=== PATIENT | male | born 1960 | race Two or more races ===

== ENCOUNTER 2024-05-20 20:59 | Inpatient (IN) | payer OTHER ==
[~2024-05-20] VITALS: Ht 167.6 cm; Wt 58.5 kg
[2024-05-20] MEDS: IV NS 0.9% 1,000 ML BAG IV ONE (21:20)
[2024-05-20 21:27] LABS: ABG BASE EXCESS -2.2 mmol/L (-2.0-3.0); ABG OXYGEN SATURATION 97.2 % (94.0-98.0); ABG PCO2 29.9 mmHg (35.0-48.0); ABG PH 7.463 (7.350-7.450); ABG PO2 99.3 mmHg (83.0-108.0); ABG TOTAL HEMOGLOBIN 9.6 G/dL (13.5-17.5); COHb 0.3 % (0.5-1.5); O2Hb 96.9 % (94.0-97.0); SITE, ABG RIGHT RADIAL
[2024-05-20 21:31] LABS: BASOPHILS # (AUTO) 0.1 K/uL (0.0-0.2); BASOPHILS % (AUTO) 0.7 % (0.0-2.0); EOSINOPHILS # (AUTO) 0.1 K/uL (0.0-0.7); EOSINOPHILS % (AUTO) 0.8 % (0.0-6.0); HEMATOCRIT 28 % (39-51); HEMOGLOBIN 8.8 g/dL (13.5-17.5); LYMPHOCYTES # (AUTO) 1.3 K/uL (0.8-4.8); LYMPHOCYTES % (AUTO) 10.8 % (20.0-44.0); MEAN CORPUSCULAR HEMOGLOBIN 29 PG (26.0-33.0); MEAN CORPUSCULAR HGB CONC 32 g/dl (31.0-36.0); MEAN CORPUSCULAR VOLUME 91 fL (80-96); MONOCYTES # (AUTO) 0.9 K/uL (0.1-1.30); MONOCYTES % (AUTO) 7.5 % (2.0-12.0); NEUTROPHILS # (AUTO) 9.6 K/uL (1.8-8.9); NEUTROPHILS % (AUTO) 80.2 % (43.0-81.0); PLATELET COUNT (AUTO) 251 K/uL (150-450); RED BLOOD CELL COUNT(AUTO) 3.05 MIL/uL (4.5-6.0); RED CELL DISTRIBUTION WIDTH 20.4 % (11.5-15.0)
[2024-05-20 21:43] LABS: INR 1.18 (0.91-1.10); PARTIAL THROMBOPLASTIN TIME 32.5 SEC (24.3-34.3); PROTHROMBIN TIME 12.4 SECS (9.2-11.1)
[2024-05-20 21:45] LABS: SODIUM SERUM 148 mmol/L (136-145)
[2024-05-20 21:46] LABS: CALCIUM, SERUM 8.5 mg/dL (8.5-10.1); CARBON DIOXIDE 25 mmol/L (21-32); CHLORIDE 109 mmol/L (98-107); CREATININE 3.7 mg/dL (0.6-1.3); GLUCOSE 95 mg/dL (74-106); POTASSIUM 4.3 mmol/L (3.5-5.1); UREA NITROGEN, BLOOD 58 mg/dL (7-18)
[2024-05-20 21:52] LABS: LACTIC ACID 1.3 mmol/L (0.4-2.0)
[2024-05-20 21:58] LABS: ALANINE AMINOTRANSFERASE 19 U/L (12-78); ALBUMIN 1.8 g/dL (3.4-5.0); ALKALINE PHOSPHATASE 80 U/L (46-116); ASPARTATE AMINOTRANSFERASE 25 U/L (15-37); BILIRUBIN,DIRECT 0.2 mg/dL (0.0-0.2); BILIRUBIN,TOTAL 0.4 mg/dL (0.2-1.0); TOTAL PROTEIN, SERUM 6.2 g/dL (6.4-8.2)
[2024-05-20 22:10] LABS: APPEARANCE,URINE CLOUDY (CLEAR); BILIRUBIN,URINE NEGATIVE (NEGATIVE); BLOOD, URINE 1+ Ery/uL (NEGATIVE); COLOR,URINE YELLOW (YELLOW); KETONES,URINE NEGATIVE (NEGATIVE); LEUKOCYTE ESTERASE ,URINE 2+ (NEGATIVE); NITRITE, URINE NEGATIVE (NEGATIVE); PROTEIN,URINE 3+ mg/dl (NEGATIVE); UGLUCOSE NEGATIVE (NEGATIVE); UROBILINOGEN,URINE 0.2 EU/dL (0.2)
[2024-05-20 22:17] LABS: BACTERIA,URINE Many /HPF (None Seen); SQUAMOUS EPITHELIAL CELL,UR None Seen /HPF (None Seen); YEAST,URINE Many /HPF (None Seen)
[2024-05-20 22:18] LABS: ADD URINE CULTURE YES; WBC,URINE TOO NUMEROUS TO COUN /HPF (0-3)
[2024-05-20] MEDS ORDERED: CEFEPIME 1 GM VIAL ONE (22:18)
[2024-05-20] MEDS ORDERED: ACETAMINOPHEN 650 MG/SUPP.RECT RC ONE (22:18)
[2024-05-20] MEDS: ACETAMINOPHEN 650 MG/SUPP.RECT RC ONE (22:21)
[2024-05-20] MEDS: CEFEPIME 1 GM in IV D5W 50 ML IV ONE (22:30)
[2024-05-20] MEDS ORDERED: VANCOMYCIN 1 GM /D5W 250 ML PB IV ONE (22:59)
[2024-05-20] MEDS: VANCOMYCIN 1 GM in IV D5W 250 ML IV ONE ×2 (23:00→23:26)
[2024-05-20] MEDS ORDERED: ALBUTEROL FS 2.5 MG/3 ML VIAL.NEB NEB PRN (23:00)
[2024-05-20] MEDS ORDERED: ONDANSETRON HCL/PF 4 MG/2 ML VIAL IVP PRN (23:00)
[2024-05-20] MEDS ORDERED: IV NS 0.9% 1,000 ML IV PRN (23:00)
[2024-05-20 23:15] VITALS: BP 89/78; O2SAT 95
[2024-05-20] MEDS: ENOXAPARIN SODIUM 40 MG/0.4 ML DISP.SYRIN SQ SCH (23:29)
[2024-05-20 23:30] VITALS: BP 102/91; O2SAT 94
[2024-05-20 23:45] VITALS: BP 96/75; O2SAT 99
[2024-05-21] VITALS (39 sets, daily range): BP systolic 125–185; BP diastolic 34–119; TEMP 97.5–98.8; O2SAT 89–100
[2024-05-21 04:57] LABS: BASOPHILS # (AUTO) 0.1 K/uL (0.0-0.2); BASOPHILS % (AUTO) 0.6 % (0.0-2.0); EOSINOPHILS # (AUTO) 0.1 K/uL (0.0-0.7); EOSINOPHILS % (AUTO) 0.9 % (0.0-6.0); HEMATOCRIT 28 % (39-51); HEMOGLOBIN 8.9 g/dL (13.5-17.5); LYMPHOCYTES # (AUTO) 1.5 K/uL (0.8-4.8); LYMPHOCYTES % (AUTO) 14.8 % (20.0-44.0); MEAN CORPUSCULAR HEMOGLOBIN 29 PG (26.0-33.0); MEAN CORPUSCULAR HGB CONC 31 g/dl (31.0-36.0); MEAN CORPUSCULAR VOLUME 92 fL (80-96); MONOCYTES # (AUTO) 0.9 K/uL (0.1-1.30); MONOCYTES % (AUTO) 8.5 % (2.0-12.0); NEUTROPHILS # (AUTO) 7.8 K/uL (1.8-8.9); NEUTROPHILS % (AUTO) 75.2 % (43.0-81.0); PLATELET COUNT (AUTO) 245 K/uL (150-450); RED CELL DISTRIBUTION WIDTH 20.8 % (11.5-15.0); WHITE BLOOD COUNT (AUTO) 10.3 K/uL (4.3-11.0)
[2024-05-21 05:27] LABS: ALBUMIN 1.5 g/dL (3.4-5.0); BILIRUBIN,DIRECT 0.2 mg/dL (0.0-0.2); BILIRUBIN,TOTAL 0.3 mg/dL (0.2-1.0); CALCIUM, SERUM 8.2 mg/dL (8.5-10.1); CREATININE 3.5 mg/dL (0.6-1.3); MAGNESIUM 2.2 mg/dL (1.8-2.4); PHOSPHORUS 5.3 mg/dL (2.5-4.9); POTASSIUM 3.9 mmol/L (3.5-5.1); TOTAL PROTEIN, SERUM 5.9 g/dL (6.4-8.2)
[2024-05-21 05:34] LABS: THYROID STIMULATING HORMONE 3.22 uIU/mL (0.358-3.74)
[2024-05-21] MEDS: FUROSEMIDE 20 MG/2 ML VIAL IV SCH (06:35)
[2024-05-21] MEDS: PANTOPRAZOLE 40 MG VIAL IV SCH (08:09)
[2024-05-21] MEDS: VANCOMYCIN 750 MG in IV D5W 250 ML IV ONE (08:34)
[2024-05-21] MEDS: Z GUARD REMEDY 4 OZ OINT TP PRN (08:55)
[2024-05-21] MEDS: CEFEPIME 2 GM in IV D5W 100 ML IV SCH (10:21)
[2024-05-21] MEDS ORDERED: ASPI-1169 PO (11:27)
[2024-05-21] MEDS ORDERED: TAMS-12 PO (11:27)
[2024-05-21] MEDS ORDERED: PANT40TA49 PO (11:27)
[2024-05-21] MEDS ORDERED: POTA20PA3 PO (11:27)
[2024-05-21] MEDS ORDERED: LIDO30AD10 TP (11:27)
[2024-05-21] MEDS ORDERED: GABA300C PO (11:27)
[2024-05-21] MEDS ORDERED: ATOR40TA PO (11:27)
[2024-05-21] MEDS ORDERED: TOBR5DRO36 RIGHTEYE (11:27)
[2024-05-21] MEDS ORDERED: DEXAMETHASONE RIGHTEYE (11:27)
[2024-05-21] MEDS ORDERED: FURO20TA4 PO (11:27)
[2024-05-21] MEDS ORDERED: COLC0.6T67 PO (11:27)
[2024-05-21 15:31] LABS: CREATININE, URINE 30.9 MG/DL (30.0-125.0); URINE TOTAL PROTEIN 352.7 mg/dL (0-11.9)
[2024-05-21 15:52] LABS: APPEARANCE,URINE CLOUDY (CLEAR); BILIRUBIN,URINE NEGATIVE (NEGATIVE); BLOOD, URINE 2+ Ery/uL (NEGATIVE); COLOR,URINE RED (YELLOW); KETONES,URINE NEGATIVE (NEGATIVE); LEUKOCYTE ESTERASE ,URINE 2+ (NEGATIVE); NITRITE, URINE NEGATIVE (NEGATIVE); PROTEIN,URINE 3+ mg/dl (NEGATIVE); UGLUCOSE NEGATIVE (NEGATIVE); UROBILINOGEN,URINE 0.2 EU/dL (0.2)
[2024-05-21 16:10] LABS: ADD URINE CULTURE YES; BACTERIA,URINE Moderate /HPF (None Seen); RBC,URINE TOO NUMEROUS TO COUN /HPF (0-2); SQUAMOUS EPITHELIAL CELL,UR None Seen /HPF (None Seen); WBC,URINE TOO NUMEROUS TO COUN /HPF (0-3)
[2024-05-21 16:28] LABS: EOSINOPHIL,URINE None Seen
[2024-05-21] MEDS: ACETAMINOPHEN 650 MG/SUPP.RECT RC PRN (22:17)
[2024-05-22] VITALS (42 sets, daily range): BP systolic 117–160; BP diastolic 59–98; TEMP 97.5–107; O2SAT 86–100
[2024-05-22 05:05] LABS: ALBUMIN 1.5 g/dL (3.4-5.0); BASOPHILS # (AUTO) 0.1 K/uL (0.0-0.2); BASOPHILS % (AUTO) 0.5 % (0.0-2.0); BILIRUBIN,TOTAL 0.4 mg/dL (0.2-1.0); CALCIUM, SERUM 8.5 mg/dL (8.5-10.1); CREATININE 3.7 mg/dL (0.6-1.3); EOSINOPHILS % (AUTO) 0.3 % (0.0-6.0); HEMATOCRIT 21 % (39-51); LYMPHOCYTES # (AUTO) 1.4 K/uL (0.8-4.8); LYMPHOCYTES % (AUTO) 11.2 % (20.0-44.0); MAGNESIUM 2.3 mg/dL (1.8-2.4); MEAN CORPUSCULAR HEMOGLOBIN 29 PG (26.0-33.0); MEAN CORPUSCULAR HGB CONC 32 g/dl (31.0-36.0); MEAN CORPUSCULAR VOLUME 92 fL (80-96); MONOCYTES # (AUTO) 0.8 K/uL (0.1-1.30); MONOCYTES % (AUTO) 6.7 % (2.0-12.0); NEUTROPHILS # (AUTO) 10.3 K/uL (1.8-8.9); NEUTROPHILS % (AUTO) 81.3 % (43.0-81.0); PHOSPHORUS 5.8 mg/dL (2.5-4.9); PLATELET COUNT (AUTO) 213 K/uL (150-450); POTASSIUM 3.9 mmol/L (3.5-5.1); RED CELL DISTRIBUTION WIDTH 20.2 % (11.5-15.0); TOTAL PROTEIN, SERUM 5.6 g/dL (6.4-8.2); WHITE BLOOD COUNT (AUTO) 12.6 K/uL (4.3-11.0)
[2024-05-22 05:30] LABS: HEMOGLOBIN 6.7 g/dL (13.5-17.5)
[2024-05-22 06:08] LABS: ANISOCYTOSIS 1+; HYPOCHROMASIA 2+; LYMPHOCYTES % (MANUAL) 9 % (16-48); MONOCYTES % (MANUAL) 6 % (0-11.0); NEUTROPHILS % (MANUAL) 85 (42-76); PLATELET ESTIMATE ADEQUATE
[2024-05-22] MEDS ORDERED: AMIODARONE 450 MG in IV D5W 241 ML IV PRN (07:00)
[2024-05-22] MEDS ORDERED: AMIODARONE 150 MG in IV D5W 100 ML IV ONE (07:00)
[2024-05-22] MEDS: VANCOMYCIN 1 GM in IV D5W 250 ML IV SCH (09:00)
[2024-05-22] MEDS: IV D5/ 0.9% NACL 1,000 ML IV ONE (11:02)
[2024-05-22] MEDS: METOPROLOL TARTRATE 25 MG TABLET PO SCH (17:30)
[2024-05-22 19:03] LABS: HEMOGLOBIN 5.5 g/dL (13.5-17.5)
[2024-05-22] MEDS: DOCUSATE SODIUM 100 MG CAPSULE PO SCH (21:00)
[2024-05-22] MEDS: POLYETHYLENE GLYCOL 3350 17 GM POWD.PACK PO SCH (21:53)
[2024-05-23] VITALS (11 sets, daily range): BP systolic 111–138; BP diastolic 68–88; TEMP 97.9–99.6; O2SAT 92–100
[2024-05-23 06:48] LABS: BASOPHILS # (AUTO) 0.1 K/uL (0.0-0.2); BASOPHILS % (AUTO) 0.6 % (0.0-2.0); HEMATOCRIT 22 % (39-51); HEMOGLOBIN 7.2 g/dL (13.5-17.5); LYMPHOCYTES # (AUTO) 1.7 K/uL (0.8-4.8); LYMPHOCYTES % (AUTO) 11.2 % (20.0-44.0); MEAN CORPUSCULAR HEMOGLOBIN 29 PG (26.0-33.0); MEAN CORPUSCULAR HGB CONC 33 g/dl (31.0-36.0); MEAN CORPUSCULAR VOLUME 90 fL (80-96); MONOCYTES # (AUTO) 1.2 K/uL (0.1-1.30); MONOCYTES % (AUTO) 7.8 % (2.0-12.0); NEUTROPHILS # (AUTO) 12.4 K/uL (1.8-8.9); NEUTROPHILS % (AUTO) 80.4 % (43.0-81.0); PLATELET COUNT (AUTO) 221 K/uL (150-450); RED BLOOD CELL COUNT(AUTO) 2.44 MIL/uL (4.5-6.0); RED CELL DISTRIBUTION WIDTH 18.4 % (11.5-15.0); WHITE BLOOD COUNT (AUTO) 15.4 K/uL (4.3-11.0)
[2024-05-23 07:09] LABS: PTH, INTACT 22 pg/mL (15-65)
[2024-05-23 07:16] LABS: CREATININE 3.7 mg/dL (0.6-1.3); MAGNESIUM 2.2 mg/dL (1.8-2.4); PHOSPHORUS 4.8 mg/dL (2.5-4.9); POTASSIUM 3.6 mmol/L (3.5-5.1)
[2024-05-23 07:30] LABS: CALCIUM, SERUM 8.3 mg/dL (8.5-10.1)
[2024-05-23 18:42] LABS: HEMOGLOBIN 7.4 g/dL (13.5-17.5)
[2024-05-24] VITALS: BP 123/86; TEMP 98.5; O2SAT 100
[2024-05-24 04:00] VITALS: BP 126/80; TEMP 98.7; O2SAT 95
[2024-05-24 06:48] LABS: BASOPHILS # (AUTO) 0.1 K/uL (0.0-0.2); BASOPHILS % (AUTO) 0.4 % (0.0-2.0); EOSINOPHILS # (AUTO) 0.1 K/uL (0.0-0.7); EOSINOPHILS % (AUTO) 0.4 % (0.0-6.0); HEMATOCRIT 24 % (39-51); HEMOGLOBIN 7.5 g/dL (13.5-17.5); LYMPHOCYTES # (AUTO) 1.8 K/uL (0.8-4.8); LYMPHOCYTES % (AUTO) 10.9 % (20.0-44.0); MEAN CORPUSCULAR HEMOGLOBIN 29 PG (26.0-33.0); MEAN CORPUSCULAR HGB CONC 31 g/dl (31.0-36.0); MEAN CORPUSCULAR VOLUME 94 fL (80-96); MONOCYTES # (AUTO) 1.3 K/uL (0.1-1.30); MONOCYTES % (AUTO) 7.5 % (2.0-12.0); NEUTROPHILS # (AUTO) 13.7 K/uL (1.8-8.9); NEUTROPHILS % (AUTO) 80.8 % (43.0-81.0); PLATELET COUNT (AUTO) 249 K/uL (150-450); RED BLOOD CELL COUNT(AUTO) 2.55 MIL/uL (4.5-6.0); RED CELL DISTRIBUTION WIDTH 19.6 % (11.5-15.0); WHITE BLOOD COUNT (AUTO) 16.9 K/uL (4.3-11.0)
[2024-05-24 07:57] LABS: CALCIUM, SERUM 9.2 mg/dL (8.5-10.1); CREATININE 3.9 mg/dL (0.6-1.3); POTASSIUM 3.6 mmol/L (3.5-5.1)
[2024-05-24 08:00] VITALS: BP 132/28; TEMP 96.4; O2SAT 98
[2024-05-24 09:06] LABS: *SPE A/G RATIO 0.5 (0.7-1.7); *SPE ALBUMIN 1.8 g/dL (2.9-4.4); *SPE ALPHA-1-GLOBULIN 0.4 g/dL (0.0-0.4); *SPE ALPHA-2-GLOBULIN 0.8 g/dL (0.4-1.0); *SPE BETA GLOBULIN 0.8 g/dL (0.7-1.3); *SPE GLOBULIN, TOTAL 3.3 g/dL (2.2-3.9); *SPE M-SPIKE Not Observed g/dL (Not Observed); *SPE PROTEIN TOTAL 5.1 g/dL (6.0-8.5); *SPEGAMMA GLOBULIN 1.2 g/dL (0.4-1.8)
[2024-05-24 12:00] VITALS: BP 158/94; TEMP 97.1; O2SAT 98
[2024-05-24 16:00] VITALS: BP 141/99; TEMP 98.6; O2SAT 98
[2024-05-24 17:56] LABS: HEMOGLOBIN 8.4 g/dL (13.5-17.5)
[2024-05-24 20:00] VITALS: BP 135/89; TEMP 98.3; O2SAT 100
[2024-05-24] MEDS: LINEZOLID RTU BAG 600 MG in PREMIX 1 EA IV SCH (20:44)
[2024-05-25] VITALS: BP 127/87; TEMP 97.9; O2SAT 100
[2024-05-25 04:00] VITALS: BP 126/79; TEMP 98; O2SAT 100
[2024-05-25 06:57] LABS: BASOPHILS # (AUTO) 0.1 K/uL (0.0-0.2); BASOPHILS % (AUTO) 0.4 % (0.0-2.0); EOSINOPHILS # (AUTO) 0.1 K/uL (0.0-0.7); EOSINOPHILS % (AUTO) 0.8 % (0.0-6.0); HEMATOCRIT 25 % (39-51); HEMOGLOBIN 7.7 g/dL (13.5-17.5); LYMPHOCYTES # (AUTO) 1.8 K/uL (0.8-4.8); LYMPHOCYTES % (AUTO) 12.1 % (20.0-44.0); MEAN CORPUSCULAR HEMOGLOBIN 29 PG (26.0-33.0); MEAN CORPUSCULAR HGB CONC 32 g/dl (31.0-36.0); MEAN CORPUSCULAR VOLUME 93 fL (80-96); MONOCYTES # (AUTO) 1.3 K/uL (0.1-1.30); MONOCYTES % (AUTO) 8.5 % (2.0-12.0); NEUTROPHILS # (AUTO) 11.8 K/uL (1.8-8.9); NEUTROPHILS % (AUTO) 78.2 % (43.0-81.0); PLATELET COUNT (AUTO) 260 K/uL (150-450); RED BLOOD CELL COUNT(AUTO) 2.63 MIL/uL (4.5-6.0); RED CELL DISTRIBUTION WIDTH 19.7 % (11.5-15.0); WHITE BLOOD COUNT (AUTO) 15.2 K/uL (4.3-11.0)
[2024-05-25 07:16] LABS: CALCIUM, SERUM 9.4 mg/dL (8.5-10.1); CREATININE 3.5 mg/dL (0.6-1.3); MAGNESIUM 2.4 mg/dL (1.8-2.4); POTASSIUM 3.2 mmol/L (3.5-5.1)
[2024-05-25 08:00] VITALS: BP 130/85; TEMP 97.7; O2SAT 100
[2024-05-25 08:38] LABS: LYMPHOCYTES % (MANUAL) 12 % (16-48); MONOCYTES % (MANUAL) 10 % (0-11.0); NEUTROPHILS % (MANUAL) 78 (42-76)
[2024-05-25 08:39] LABS: ANISOCYTOSIS 1+; PLATELET ESTIMATE ADEQUATE; SMUDGE CELLS FEW
[2024-05-25] MEDS: IV D5W 1,000 ML IV ONE (10:08)
[2024-05-25 12:00] VITALS: BP 134/88; TEMP 97.8; O2SAT 100
[2024-05-25 16:00] VITALS: BP 130/85; TEMP 98.1; O2SAT 100
[2024-05-25 18:11] LABS: HEMOGLOBIN 7.8 g/dL (13.5-17.5)
[2024-05-25 20:00] VITALS: BP 113/77; TEMP 98.1; O2SAT 100
[2024-05-25] MEDS ORDERED: VANCOMYCIN 1 GM in IV D5W 250 ML IV SCH (22:00)
[2024-05-26] VITALS: BP 106/71; TEMP 97.5; O2SAT 100
[2024-05-26 04:00] VITALS: BP 106/59; TEMP 97.5; O2SAT 100
[2024-05-26 07:44] LABS: BASOPHILS # (AUTO) 0.1 K/uL (0.0-0.2); BASOPHILS % (AUTO) 0.6 % (0.0-2.0); EOSINOPHILS # (AUTO) 0.3 K/uL (0.0-0.7); EOSINOPHILS % (AUTO) 2.3 % (0.0-6.0); HEMATOCRIT 27 % (39-51); HEMOGLOBIN 8.5 g/dL (13.5-17.5); LYMPHOCYTES # (AUTO) 1.6 K/uL (0.8-4.8); LYMPHOCYTES % (AUTO) 11.8 % (20.0-44.0); MEAN CORPUSCULAR HEMOGLOBIN 30 PG (26.0-33.0); MEAN CORPUSCULAR HGB CONC 32 g/dl (31.0-36.0); MEAN CORPUSCULAR VOLUME 94 fL (80-96); MONOCYTES % (AUTO) 7.5 % (2.0-12.0); NEUTROPHILS # (AUTO) 10.2 K/uL (1.8-8.9); NEUTROPHILS % (AUTO) 77.8 % (43.0-81.0); PLATELET COUNT (AUTO) 246 K/uL (150-450); RED BLOOD CELL COUNT(AUTO) 2.88 MIL/uL (4.5-6.0); RED CELL DISTRIBUTION WIDTH 19.9 % (11.5-15.0); WHITE BLOOD COUNT (AUTO) 13.1 K/uL (4.3-11.0)
[2024-05-26 08:00] VITALS: BP 124/78; TEMP 97.7; O2SAT 100
[2024-05-26 08:02] LABS: CALCIUM, SERUM 9.2 mg/dL (8.5-10.1); CREATININE 3.3 mg/dL (0.6-1.3); MAGNESIUM 2.3 mg/dL (1.8-2.4); PHOSPHORUS 3.9 mg/dL (2.5-4.9); POTASSIUM 3.5 mmol/L (3.5-5.1)
[2024-05-26 12:00] VITALS: BP 119/76; TEMP 98; O2SAT 99
[2024-05-26 16:00] VITALS: BP 117/78; TEMP 97.9; O2SAT 97
[2024-05-26 18:33] LABS: HEMOGLOBIN 8.1 g/dL (13.5-17.5)
[2024-05-26 20:00] VITALS: BP 124/79; TEMP 98.2; O2SAT 97
[2024-05-27] VITALS: BP 130/82; TEMP 98.1; O2SAT 97
[2024-05-27 04:00] VITALS: BP 136/82; TEMP 98.1; O2SAT 97
[2024-05-27 07:01] LABS: CALCIUM, SERUM 9.5 mg/dL (8.5-10.1); CREATININE 3.2 mg/dL (0.6-1.3)
[2024-05-27 07:09] LABS: BASOPHILS # (AUTO) 0.1 K/uL (0.0-0.2); BASOPHILS % (AUTO) 0.6 % (0.0-2.0); EOSINOPHILS # (AUTO) 0.2 K/uL (0.0-0.7); EOSINOPHILS % (AUTO) 1.4 % (0.0-6.0); HEMATOCRIT 27 % (39-51); HEMOGLOBIN 8.4 g/dL (13.5-17.5); LYMPHOCYTES # (AUTO) 1.6 K/uL (0.8-4.8); LYMPHOCYTES % (AUTO) 12.5 % (20.0-44.0); MEAN CORPUSCULAR HEMOGLOBIN 29 PG (26.0-33.0); MEAN CORPUSCULAR HGB CONC 31 g/dl (31.0-36.0); MEAN CORPUSCULAR VOLUME 94 fL (80-96); MONOCYTES # (AUTO) 0.9 K/uL (0.1-1.30); MONOCYTES % (AUTO) 7.2 % (2.0-12.0); NEUTROPHILS # (AUTO) 9.9 K/uL (1.8-8.9); NEUTROPHILS % (AUTO) 78.3 % (43.0-81.0); PLATELET COUNT (AUTO) 239 K/uL (150-450); RED BLOOD CELL COUNT(AUTO) 2.88 MIL/uL (4.5-6.0); RED CELL DISTRIBUTION WIDTH 19.3 % (11.5-15.0); WHITE BLOOD COUNT (AUTO) 12.7 K/uL (4.3-11.0)
[2024-05-27 08:00] VITALS: BP 134/87; TEMP 98.1; O2SAT 97
[2024-05-27 08:03] LABS: POTASSIUM 2.8 mmol/L (3.5-5.1)
[2024-05-27] MEDS: IV D5/0.45 NACL 1,000 ML IV SCH (11:54)
[2024-05-27 12:00] VITALS: BP 127/85; TEMP 97.8; O2SAT 97
[2024-05-27] MEDS: POTASSIUM CL. PREMIX PERIPHER. 50 ML IV SCH (14:06)
[2024-05-27 16:00] VITALS: BP 124/76; TEMP 98.2; O2SAT 97
[2024-05-27 20:00] VITALS: BP 119/89; TEMP 97.3; O2SAT 99
[2024-05-27] MEDS ORDERED: POTASSIUM CL. PREMIX PERIPHER. 50 ML ONE (22:39)
[2024-05-28] VITALS: BP 113/78; TEMP 97.5; O2SAT 99
[2024-05-28 04:00] VITALS: BP 120/89; TEMP 97.2; O2SAT 100
[2024-05-28 07:22] LABS: BASOPHILS # (AUTO) 0.1 K/uL (0.0-0.2); BASOPHILS % (AUTO) 0.5 % (0.0-2.0); EOSINOPHILS # (AUTO) 0.4 K/uL (0.0-0.7); EOSINOPHILS % (AUTO) 2.6 % (0.0-6.0); HEMATOCRIT 25 % (39-51); HEMOGLOBIN 7.9 g/dL (13.5-17.5); LYMPHOCYTES # (AUTO) 1.8 K/uL (0.8-4.8); MEAN CORPUSCULAR HEMOGLOBIN 30 PG (26.0-33.0); MEAN CORPUSCULAR HGB CONC 32 g/dl (31.0-36.0); MEAN CORPUSCULAR VOLUME 95 fL (80-96); MONOCYTES # (AUTO) 0.8 K/uL (0.1-1.30); NEUTROPHILS # (AUTO) 10.7 K/uL (1.8-8.9); NEUTROPHILS % (AUTO) 77.9 % (43.0-81.0); PLATELET COUNT (AUTO) 231 K/uL (150-450); RED BLOOD CELL COUNT(AUTO) 2.64 MIL/uL (4.5-6.0); RED CELL DISTRIBUTION WIDTH 19.5 % (11.5-15.0); WHITE BLOOD COUNT (AUTO) 13.7 K/uL (4.3-11.0)
[2024-05-28 07:54] LABS: CREATININE 3.1 mg/dL (0.6-1.3); MAGNESIUM 2.4 mg/dL (1.8-2.4); PHOSPHORUS 4.2 mg/dL (2.5-4.9); POTASSIUM 3.3 mmol/L (3.5-5.1)
[2024-05-28 08:00] VITALS: BP 136/82; TEMP 98; O2SAT 100
[2024-05-28 12:00] VITALS: BP 123/82; TEMP 99; O2SAT 100
[2024-05-28 16:00] VITALS: BP 136/87; TEMP 98.2; O2SAT 100
[2024-05-28 18:15] LABS: HEMOGLOBIN 7.8 g/dL (13.5-17.5)
[2024-05-28 20:00] VITALS: BP 107/68; TEMP 98.1; O2SAT 96
[2024-05-29] VITALS: BP 107/73; TEMP 97.9; O2SAT 99
[2024-05-29] MEDS: IV D5W 1,000 ML IV PRN (02:24)
[2024-05-29 04:00] VITALS: BP 107/71; TEMP 97.9; O2SAT 100
[2024-05-29 07:15] LABS: CALCIUM, SERUM 8.2 mg/dL (8.5-10.1); CREATININE 2.6 mg/dL (0.6-1.3); PHOSPHORUS 3.3 mg/dL (2.5-4.9); POTASSIUM 3.1 mmol/L (3.5-5.1)
[2024-05-29 07:23] LABS: BASOPHILS % (AUTO) 0.4 % (0.0-2.0); EOSINOPHILS # (AUTO) 0.3 K/uL (0.0-0.7); EOSINOPHILS % (AUTO) 2.6 % (0.0-6.0); HEMATOCRIT 24 % (39-51); HEMOGLOBIN 7.7 g/dL (13.5-17.5); LYMPHOCYTES # (AUTO) 1.5 K/uL (0.8-4.8); LYMPHOCYTES % (AUTO) 11.7 % (20.0-44.0); MEAN CORPUSCULAR HEMOGLOBIN 30 PG (26.0-33.0); MEAN CORPUSCULAR HGB CONC 32 g/dl (31.0-36.0); MEAN CORPUSCULAR VOLUME 95 fL (80-96); MONOCYTES # (AUTO) 0.6 K/uL (0.1-1.30); MONOCYTES % (AUTO) 4.6 % (2.0-12.0); NEUTROPHILS # (AUTO) 10.4 K/uL (1.8-8.9); NEUTROPHILS % (AUTO) 80.7 % (43.0-81.0); PLATELET COUNT (AUTO) 198 K/uL (150-450); RED BLOOD CELL COUNT(AUTO) 2.55 MIL/uL (4.5-6.0); RED CELL DISTRIBUTION WIDTH 20.5 % (11.5-15.0); WHITE BLOOD COUNT (AUTO) 12.8 K/uL (4.3-11.0)
[2024-05-29 08:00] VITALS: BP 110/76; TEMP 97.5; O2SAT 100
[2024-05-29] MEDS: PANTOPRAZOLE 40 MG TABLET.DR PO SCH (08:28)
[2024-05-29] MEDS ORDERED: POTASSIUM CHLORIDE 10 MEQ/50 ML PREMIXED IVPB FOR PERIPHERAL LINE IV ONE (11:00)
[2024-05-29] MEDS: POTASSIUM CL. PREMIX PERIPHER. 50 ML IV SCH (11:08)
[2024-05-29] MEDS: ENSURE ENLIVE 237 ML LIQUID (VANILLA) PO SCH (11:09)
[2024-05-29 12:00] VITALS: BP 103/69; TEMP 98; O2SAT 100
[2024-05-29 16:00] VITALS: BP 104/73; TEMP 97.9; O2SAT 95
[2024-05-29 20:00] VITALS: BP 108/76; TEMP 97.5; O2SAT 100
[2024-05-30] VITALS: BP 95/72; TEMP 98.3; O2SAT 97
[2024-05-30 04:00] VITALS: BP 96/74; TEMP 98; O2SAT 100
[2024-05-30 08:00] VITALS: BP 106/76; TEMP 97.5; O2SAT 100
[2024-05-30] MEDS: FUROSEMIDE 20 MG/2 ML VIAL IV ONE (09:59)
[2024-05-30 12:00] VITALS: BP 108/78; TEMP 97.7; O2SAT 95
[2024-05-30 16:00] VITALS: BP 121/76; TEMP 98; O2SAT 95
[2024-05-30 20:00] VITALS: BP 110/75; TEMP 98.8; O2SAT 100
[2024-05-31] VITALS: BP 92/67; TEMP 98.2; O2SAT 100
[2024-05-31 04:00] VITALS: BP 95/72; TEMP 97.3; O2SAT 100
[2024-05-31 08:00] VITALS: BP 100/73; TEMP 97.8; O2SAT 100
[2024-05-31 12:00] VITALS: BP 94/68; TEMP 97.8; O2SAT 100
[2024-05-31 12:42] LABS: CALCIUM, SERUM 8.6 mg/dL (8.5-10.1); CREATININE 2.5 mg/dL (0.6-1.3); POTASSIUM 3.5 mmol/L (3.5-5.1)
[2024-05-31 12:54] LABS: BASOPHILS % (AUTO) 0.2 % (0.0-2.0); EOSINOPHILS # (AUTO) 0.2 K/uL (0.0-0.7); HEMATOCRIT 26 % (39-51); HEMOGLOBIN 8.3 g/dL (13.5-17.5); LYMPHOCYTES # (AUTO) 1.3 K/uL (0.8-4.8); LYMPHOCYTES % (AUTO) 11.3 % (20.0-44.0); MEAN CORPUSCULAR HEMOGLOBIN 30 PG (26.0-33.0); MEAN CORPUSCULAR HGB CONC 32 g/dl (31.0-36.0); MEAN CORPUSCULAR VOLUME 94 fL (80-96); MONOCYTES # (AUTO) 0.6 K/uL (0.1-1.30); MONOCYTES % (AUTO) 5.5 % (2.0-12.0); NEUTROPHILS # (AUTO) 9.7 K/uL (1.8-8.9); PLATELET COUNT (AUTO) 169 K/uL (150-450); RED BLOOD CELL COUNT(AUTO) 2.76 MIL/uL (4.5-6.0); RED CELL DISTRIBUTION WIDTH 19.4 % (11.5-15.0); WHITE BLOOD COUNT (AUTO) 11.9 K/uL (4.3-11.0)
[2024-05-31 16:00] VITALS: BP 103/73; TEMP 97.9; O2SAT 100
[2024-05-31 20:00] VITALS: BP 91/77; TEMP 97.3; O2SAT 100
[2024-06-01] VITALS: BP 96/65; TEMP 98.1; O2SAT 98
[2024-06-01 04:00] VITALS: BP 100/69; TEMP 97.9; O2SAT 100
[2024-06-01 08:00] VITALS: BP 99/71; TEMP 98.1; O2SAT 100
[2024-06-01 13:00] VITALS: O2SAT 95
[2024-06-01 16:00] VITALS: BP 107/73; TEMP 98.6; O2SAT 100
[2024-06-01 20:00] VITALS: BP 101/69; TEMP 98.6; O2SAT 100
[2024-06-02 04:00] VITALS: BP 99/67; TEMP 98.4; O2SAT 100
[2024-06-02 08:00] VITALS: BP 108/73; TEMP 97.3; O2SAT 95
[2024-06-02 13:34] LABS: ALBUMIN 1.9 g/dL (3.4-5.0); BILIRUBIN,TOTAL 0.4 mg/dL (0.2-1.0); CALCIUM, SERUM 8.6 mg/dL (8.5-10.1); CREATININE 2.5 mg/dL (0.6-1.3); MAGNESIUM 2.4 mg/dL (1.8-2.4); PHOSPHORUS 5.1 mg/dL (2.5-4.9); POTASSIUM 3.9 mmol/L (3.5-5.1); TOTAL PROTEIN, SERUM 6.8 g/dL (6.4-8.2)
[2024-06-02 13:40] LABS: BASOPHILS % (AUTO) 0.4 % (0.0-2.0); EOSINOPHILS # (AUTO) 0.1 K/uL (0.0-0.7); EOSINOPHILS % (AUTO) 1.4 % (0.0-6.0); HEMATOCRIT 25 % (39-51); HEMOGLOBIN 8.4 g/dL (13.5-17.5); LYMPHOCYTES # (AUTO) 1.2 K/uL (0.8-4.8); LYMPHOCYTES % (AUTO) 13.4 % (20.0-44.0); MEAN CORPUSCULAR HEMOGLOBIN 32 PG (26.0-33.0); MEAN CORPUSCULAR HGB CONC 34 g/dl (31.0-36.0); MEAN CORPUSCULAR VOLUME 93 fL (80-96); MONOCYTES # (AUTO) 0.4 K/uL (0.1-1.30); MONOCYTES % (AUTO) 4.8 % (2.0-12.0); NEUTROPHILS # (AUTO) 6.9 K/uL (1.8-8.9); PLATELET COUNT (AUTO) 139 K/uL (150-450); RED BLOOD CELL COUNT(AUTO) 2.67 MIL/uL (4.5-6.0); RED CELL DISTRIBUTION WIDTH 19.6 % (11.5-15.0); WHITE BLOOD COUNT (AUTO) 8.6 K/uL (4.3-11.0)
[2024-06-02 16:00] VITALS: BP 101/75; TEMP 97.3; O2SAT 99
[2024-06-02 20:00] VITALS: BP 102/73; TEMP 98.9; O2SAT 99
[2024-06-03 04:00] VITALS: BP 108/73; TEMP 98.2; O2SAT 99
[2024-06-03 07:08] LABS: BASOPHILS # (AUTO) 0.1 K/uL (0.0-0.2); BASOPHILS % (AUTO) 0.7 % (0.0-2.0); EOSINOPHILS # (AUTO) 0.1 K/uL (0.0-0.7); EOSINOPHILS % (AUTO) 1.3 % (0.0-6.0); HEMATOCRIT 27 % (39-51); HEMOGLOBIN 8.9 g/dL (13.5-17.5); LYMPHOCYTES # (AUTO) 1.3 K/uL (0.8-4.8); LYMPHOCYTES % (AUTO) 16.7 % (20.0-44.0); MEAN CORPUSCULAR HEMOGLOBIN 31 PG (26.0-33.0); MEAN CORPUSCULAR HGB CONC 33 g/dl (31.0-36.0); MEAN CORPUSCULAR VOLUME 94 fL (80-96); MONOCYTES # (AUTO) 0.6 K/uL (0.1-1.30); MONOCYTES % (AUTO) 7.1 % (2.0-12.0); NEUTROPHILS # (AUTO) 5.8 K/uL (1.8-8.9); NEUTROPHILS % (AUTO) 74.2 % (43.0-81.0); PLATELET COUNT (AUTO) 128 K/uL (150-450); RED BLOOD CELL COUNT(AUTO) 2.87 MIL/uL (4.5-6.0); RED CELL DISTRIBUTION WIDTH 20.1 % (11.5-15.0); WHITE BLOOD COUNT (AUTO) 7.8 K/uL (4.3-11.0)
[2024-06-03 07:52] LABS: ALBUMIN 1.9 g/dL (3.4-5.0); BILIRUBIN,TOTAL 0.3 mg/dL (0.2-1.0); CALCIUM, SERUM 8.6 mg/dL (8.5-10.1); CREATININE 2.7 mg/dL (0.6-1.3); MAGNESIUM 2.4 mg/dL (1.8-2.4); PHOSPHORUS 5.1 mg/dL (2.5-4.9); TOTAL PROTEIN, SERUM 6.6 g/dL (6.4-8.2)
[2024-06-03 08:00] VITALS: BP 118/74; TEMP 98.4; O2SAT 99
[2024-06-03] MEDS: DAPTOMYCIN 500 MG in IV NS 0.9% 50 ML IV SCH (08:03)
[2024-06-03 16:00] VITALS: BP 115/65; TEMP 98.1; O2SAT 99
[2024-06-03 20:00] VITALS: BP 106/75; TEMP 98.1; O2SAT 98
[2024-06-04 04:00] VITALS: BP 112/74; TEMP 98.1; O2SAT 99
[2024-06-04 06:44] LABS: BASOPHILS % (AUTO) 0.6 % (0.0-2.0); EOSINOPHILS # (AUTO) 0.1 K/uL (0.0-0.7); EOSINOPHILS % (AUTO) 1.3 % (0.0-6.0); HEMATOCRIT 26 % (39-51); HEMOGLOBIN 8.4 g/dL (13.5-17.5); LYMPHOCYTES # (AUTO) 1.7 K/uL (0.8-4.8); LYMPHOCYTES % (AUTO) 21.6 % (20.0-44.0); MEAN CORPUSCULAR HEMOGLOBIN 30 PG (26.0-33.0); MEAN CORPUSCULAR HGB CONC 32 g/dl (31.0-36.0); MEAN CORPUSCULAR VOLUME 95 fL (80-96); MONOCYTES # (AUTO) 0.5 K/uL (0.1-1.30); MONOCYTES % (AUTO) 6.6 % (2.0-12.0); NEUTROPHILS # (AUTO) 5.6 K/uL (1.8-8.9); NEUTROPHILS % (AUTO) 69.9 % (43.0-81.0); PLATELET COUNT (AUTO) 124 K/uL (150-450); RED BLOOD CELL COUNT(AUTO) 2.79 MIL/uL (4.5-6.0); RED CELL DISTRIBUTION WIDTH 19.8 % (11.5-15.0)
[2024-06-04 07:29] LABS: ALBUMIN 1.9 g/dL (3.4-5.0); BILIRUBIN,TOTAL 0.3 mg/dL (0.2-1.0); CALCIUM, SERUM 8.6 mg/dL (8.5-10.1); CREATININE 2.4 mg/dL (0.6-1.3); MAGNESIUM 2.6 mg/dL (1.8-2.4); PHOSPHORUS 4.7 mg/dL (2.5-4.9); POTASSIUM 4.1 mmol/L (3.5-5.1); TOTAL PROTEIN, SERUM 6.7 g/dL (6.4-8.2)
[2024-06-04 09:35] VITALS: BP 114/75
== END 2024-06-04 11:40 | DRG 720 ==
LOC: ER 21:01 → ICU 22:25 → ICUOV 05-22 17:18 → ICU 05-22 20:11 → ICUOV 05-22 20:20 → TELE-TD 05-23 08:56 → TELE1 05-24 11:49 → MEDSG1 06-01 09:58
PROVIDERS: ADMIT Nurse Practitioner Family; ATTEND Internal Medicine
PROC: 30233N1 Transfusion of Nonautologous Red Blood Cells into Peripheral Vein, Percutaneous Approach (ICD-10-PCS; principal; 2024-05-22)
DX: A41.9 Sepsis, unspecified organism (principal); N17.0 Acute kidney failure with tubular necrosis; J96.21 Acute and chronic respiratory failure with hypoxia; I33.0 Acute and subacute infective endocarditis; G92.9 Unspecified toxic encephalopathy; D68.59 Other primary thrombophilia; J15.9 Unspecified bacterial pneumonia; I27.20 Pulmonary hypertension, unspecified; D63.8 Anemia in other chronic diseases classified elsewhere; I50.33 Acute on chronic diastolic (congestive) heart failure; I21.A1 Myocardial infarction type 2; E87.0 Hyperosmolality and hypernatremia; E86.0 Dehydration; F41.9 Anxiety disorder, unspecified; M89.8X9 Other specified disorders of bone, unspecified site; R13.10 Dysphagia, unspecified; Z86.73 Personal history of transient ischemic attack (TIA), and cerebral infarction without residual deficits; B37.49 Other urogenital candidiasis; Z20.822 Contact with and (suspected) exposure to COVID-19; N18.9 Chronic kidney disease, unspecified; I48.0 Paroxysmal atrial fibrillation; I34.0 Nonrheumatic mitral (valve) insufficiency; N13.6 Pyonephrosis; Z86.79 Personal history of other diseases of the circulatory system; N40.1 Benign prostatic hyperplasia with lower urinary tract symptoms
CPT/HCPCS: 36415; 36600; 71045-TC; 71250-TC; 76770-TC; 80048-TC; 80053-TC; 80076-TC; 80202-TC; 81001; 82550-TC; 82570-TC; 82803-TC; 82962-TC; 83605-TC; 83735-TC; 83880; 83970; 84100-TC; 84155; 84165; 84300-TC; 84443-TC; 84484-TC; 85025-TC; 85027-TC; 85730-TC; 86850-TC; 87040-TC; 87081-TC; 87086-TC; 92526; 92611-TC; 93307-TC; A4216; A4223; A9562; G0378; J0282; J0692; J0878; J1650; J1940; J2020; J2470; J3370; J3371; J3480; J3490; J7030; J7042; J7050; J7060; J7070; P9016

== ENCOUNTER 2024-06-13 14:28 | Inpatient (IN) | payer OTHER ==
[~2024-06-13] VITALS: Ht 165.1 cm; Wt 54.4 kg
[~2024-06-13 14:28] MED LIST: ASPI-1169 PO; ATOR40TA PO; COLC0.6T67 PO; DAPT500V2 IV; DEXAMETHASONE RIGHTEYE; FURO20TA4 PO; GABA300C PO; LIDO30AD10 TP; PANT40TA49 PO; POTA20PA3 PO; TAMS-12 PO; TOBR5DRO36 RIGHTEYE
[2024-06-13] MEDS ORDERED: EPOE40007 SQ (15:08)
[2024-06-13] MEDS ORDERED: MAGN400O6 PO (15:08)
[2024-06-13] MEDS ORDERED: BISA10SU11 RC (15:08)
[2024-06-13] MEDS ORDERED: LORA-258 PO (15:08)
[2024-06-13] MEDS ORDERED: NA P133E RC (15:08)
[2024-06-13] MEDS ORDERED: METO25TA20 PO (15:08)
[2024-06-13] MEDS ORDERED: IPRA3AMP23 NEB (15:08)
[2024-06-13] MEDS ORDERED: POLY119P17 PO (15:08)
[2024-06-13] MEDS ORDERED: ACET325T53 PO (15:08)
[2024-06-13] MEDS ORDERED: DOCU100C36 PO (15:08)
[2024-06-13 15:26] LABS: BASOPHILS # (AUTO) 0.1 K/uL (0.0-0.2); BASOPHILS % (AUTO) 0.7 % (0.0-2.0); EOSINOPHILS % (AUTO) 0.1 % (0.0-6.0); HEMATOCRIT 22 % (39-51); LYMPHOCYTES # (AUTO) 1.8 K/uL (0.8-4.8); MEAN CORPUSCULAR HEMOGLOBIN 30 PG (26.0-33.0); MEAN CORPUSCULAR HGB CONC 32 g/dl (31.0-36.0); MEAN CORPUSCULAR VOLUME 94 fL (80-96); MONOCYTES # (AUTO) 1.2 K/uL (0.1-1.30); MONOCYTES % (AUTO) 13.7 % (2.0-12.0); NEUTROPHILS # (AUTO) 5.9 K/uL (1.8-8.9); NEUTROPHILS % (AUTO) 65.5 % (43.0-81.0); PLATELET COUNT (AUTO) 285 K/uL (150-450); RED BLOOD CELL COUNT(AUTO) 2.32 MIL/uL (4.5-6.0); RED CELL DISTRIBUTION WIDTH 20.6 % (11.5-15.0); WHITE BLOOD COUNT (AUTO) 9.1 K/uL (4.3-11.0)
[2024-06-13 15:39] LABS: ALBUMIN 1.5 g/dL (3.4-5.0); BILIRUBIN,DIRECT 0.2 mg/dL (0.0-0.2); BILIRUBIN,TOTAL 0.3 mg/dL (0.2-1.0); CALCIUM, SERUM 8.2 mg/dL (8.5-10.1); CREATININE 2.9 mg/dL (0.6-1.3); TOTAL PROTEIN, SERUM 6.7 g/dL (6.4-8.2)
[2024-06-13 15:45] LABS: INR 1.15 (0.91-1.10); PARTIAL THROMBOPLASTIN TIME 33.2 SEC (24.3-34.3); PROTHROMBIN TIME 12.1 SECS (9.2-11.1)
[2024-06-13] MEDS ORDERED: Z GUARD REMEDY 4 OZ OINT TP PRN (19:00)
[2024-06-13] MEDS ORDERED: MAG HYDROX/AL HYDROX/SIMETH 30 ML UDC PO PRN (19:00)
[2024-06-13] MEDS ORDERED: IV NS 0.9% 1,000 ML IV PRN (19:00)
[2024-06-13] MEDS ORDERED: ACETAMINOPHEN 325 MG TABLET PO PRN (19:00)
[2024-06-13] MEDS ORDERED: MAGNESIUM HYDROXIDE 30 ML UDC PO PRN (19:00)
[2024-06-13] MEDS ORDERED: LORAZEPAM 0.5 MG TABLET PO PRN (19:00)
[2024-06-13] MEDS: IV NS 0.9% 1,000 ML IV PRN (20:17)
[2024-06-13 23:57] LABS: HEMOGLOBIN 6.7 g/dL (13.5-17.5)
[2024-06-14] MEDS: FUROSEMIDE 20 MG TABLET PO SCH (09:00)
[2024-06-14] MEDS: METOPROLOL TARTRATE 25 MG TABLET PO SCH (09:00)
[2024-06-14] MEDS: DOCUSATE SODIUM 100 MG CAPSULE PO SCH (10:23)
[2024-06-14] MEDS: PANTOPRAZOLE 40 MG VIAL IV SCH ×2 (10:23→16:30)
[2024-06-14] MEDS: POLYETHYLENE GLYCOL 3350 17 GM POWD.PACK PO SCH (10:23)
[2024-06-14 12:09] LABS: BASOPHILS # (AUTO) 0.1 K/uL (0.0-0.2); BASOPHILS % (AUTO) 0.9 % (0.0-2.0); EOSINOPHILS % (AUTO) 0.2 % (0.0-6.0); HEMATOCRIT 25 % (39-51); HEMOGLOBIN 7.1 g/dL (13.5-17.5); LYMPHOCYTES # (AUTO) 3.2 K/uL (0.8-4.8); LYMPHOCYTES % (AUTO) 29.5 % (20.0-44.0); MEAN CORPUSCULAR HEMOGLOBIN 30 PG (26.0-33.0); MEAN CORPUSCULAR HGB CONC 28 g/dl (31.0-36.0); MEAN CORPUSCULAR VOLUME 106 fL (80-96); MONOCYTES # (AUTO) 1.2 K/uL (0.1-1.30); MONOCYTES % (AUTO) 11.3 % (2.0-12.0); NEUTROPHILS # (AUTO) 6.2 K/uL (1.8-8.9); NEUTROPHILS % (AUTO) 58.1 % (43.0-81.0); PLATELET COUNT (AUTO) 213 K/uL (150-450); RED BLOOD CELL COUNT(AUTO) 2.37 MIL/uL (4.5-6.0); RED CELL DISTRIBUTION WIDTH 22.1 % (11.5-15.0); WHITE BLOOD COUNT (AUTO) 10.7 K/uL (4.3-11.0)
[2024-06-14 12:11] LABS: ALBUMIN 1.5 g/dL (3.4-5.0); BILIRUBIN,DIRECT 0.2 mg/dL (0.0-0.2); BILIRUBIN,TOTAL 0.5 mg/dL (0.2-1.0); CALCIUM, SERUM 8.5 mg/dL (8.5-10.1); CREATININE 2.9 mg/dL (0.6-1.3); MAGNESIUM 2.9 mg/dL (1.8-2.4); PHOSPHORUS 5.1 mg/dL (2.5-4.9); POTASSIUM 5.6 mmol/L (3.5-5.1); TOTAL PROTEIN, SERUM 6.9 g/dL (6.4-8.2)
[2024-06-14] MEDS: EPOETIN ALFA-EPBX 4,000 UNIT/ML VIAL SQ SCH (16:12)
[2024-06-14 20:00] VITALS: BP 92/67; TEMP 97.9; O2SAT 98
[2024-06-14 22:22] LABS: INR 1.18 (0.91-1.10); PROTHROMBIN TIME 12.4 SECS (9.2-11.1)
[2024-06-15] VITALS (7 sets, daily range): BP systolic 97–138; BP diastolic 60–77; TEMP 97.3–98.2; O2SAT 99–100
[2024-06-15 07:23] LABS: BASOPHILS % (AUTO) 0.4 % (0.0-2.0); EOSINOPHILS % (AUTO) 0.2 % (0.0-6.0); HEMATOCRIT 23 % (39-51); HEMOGLOBIN 7.2 g/dL (13.5-17.5); LYMPHOCYTES # (AUTO) 2.4 K/uL (0.8-4.8); LYMPHOCYTES % (AUTO) 25.3 % (20.0-44.0); MEAN CORPUSCULAR HEMOGLOBIN 30 PG (26.0-33.0); MEAN CORPUSCULAR HGB CONC 32 g/dl (31.0-36.0); MEAN CORPUSCULAR VOLUME 96 fL (80-96); MONOCYTES # (AUTO) 0.9 K/uL (0.1-1.30); MONOCYTES % (AUTO) 9.8 % (2.0-12.0); NEUTROPHILS # (AUTO) 6.2 K/uL (1.8-8.9); NEUTROPHILS % (AUTO) 64.3 % (43.0-81.0); PLATELET COUNT (AUTO) 308 K/uL (150-450); RED CELL DISTRIBUTION WIDTH 21.2 % (11.5-15.0); WHITE BLOOD COUNT (AUTO) 9.6 K/uL (4.3-11.0)
[2024-06-15 07:35] LABS: CALCIUM, SERUM 8.3 mg/dL (8.5-10.1); CREATININE 3.2 mg/dL (0.6-1.3); POTASSIUM 5.9 mmol/L (3.5-5.1)
[2024-06-15] MEDS: ALBUTEROL FS 2.5 MG/3 ML VIAL.NEB NEB ONE ×2 (08:31)
[2024-06-15] MEDS: SODIUM POLYSTYRENE SULFONATE 15 G/60 ML BOTTLE PO ONE (09:55)
[2024-06-15 09:58] LABS: THYROID STIMULATING HORMONE 4.15 uIU/mL (0.358-3.74)
[2024-06-15 15:49] LABS: APPEARANCE,URINE CLOUDY (CLEAR); BILIRUBIN,URINE NEGATIVE (NEGATIVE); BLOOD, URINE 1+ Ery/uL (NEGATIVE); COLOR,URINE YELLOW (YELLOW); KETONES,URINE NEGATIVE (NEGATIVE); LEUKOCYTE ESTERASE ,URINE 2+ (NEGATIVE); NITRITE, URINE NEGATIVE (NEGATIVE); PROTEIN,URINE 3+ mg/dl (NEGATIVE); UGLUCOSE NEGATIVE (NEGATIVE); UROBILINOGEN,URINE 0.2 EU/dL (0.2)
[2024-06-15 16:05] LABS: AMPHETAMINE, URINE NEGATIVE (NEGATIVE); BARBITURATE, URINE NEGATIVE (NEGATIVE); BENZODIAZEPINE, URINE NEGATIVE (NEGATIVE); CANNABINOID, URINE NEGATIVE (NEGATIVE); COCCAINE, URINE NEGATIVE (NEGATIVE); OPIATE, URINE NEGATIVE (NEGATIVE); PHENCYCLIDINE SCREEN,URINE NEGATIVE (NEGATIVE)
[2024-06-15 16:10] LABS: OCCULT BLOOD STOOL NEGATIVE (NEGATIVE)
[2024-06-15 16:19] LABS: ADD URINE CULTURE YES; BACTERIA,URINE 1+ /HPF (None Seen); FINE GRANULAR CASTS,URINE Few /LPF (None Seen); SQUAMOUS EPITHELIAL CELL,UR 0-2 /HPF (None Seen); TRICHOMONAS,URINE None Seen /HPF (None Seen); URINE AMORPHOUS URATE Few /HPF (None Seen); WBC,URINE TOO NUMEROUS TO COUN /HPF (0-3); YEAST,URINE Few /HPF (None Seen)
[2024-06-15 16:20] LABS: COARSE GRANULAR CASTS,URINE Few /LPF (None Seen); MUCUS,URINE Many /LPF (None Seen)
[2024-06-15 16:30] LABS: EOSINOPHIL,URINE None Seen
[2024-06-15 18:43] LABS: CALCIUM, SERUM 7.7 mg/dL (8.5-10.1); CREATININE 3.5 mg/dL (0.6-1.3); POTASSIUM 5.3 mmol/L (3.5-5.1)
[2024-06-16 04:00] VITALS: BP 135/64; TEMP 98.4; O2SAT 100
[2024-06-16 08:20] VITALS: BP 114/75; TEMP 98; O2SAT 99
[2024-06-16 12:52] LABS: BILIRUBIN,TOTAL 0.4 mg/dL (0.2-1.0); CALCIUM, SERUM 7.9 mg/dL (8.5-10.1); CREATININE 3.5 mg/dL (0.6-1.3); MAGNESIUM 3.1 mg/dL (1.8-2.4); PHOSPHORUS 5.8 mg/dL (2.5-4.9); POTASSIUM 4.3 mmol/L (3.5-5.1); TOTAL PROTEIN, SERUM 6.5 g/dL (6.4-8.2)
[2024-06-16 13:05] LABS: ALBUMIN 1.2 g/dL (3.4-5.0); BASOPHILS % (AUTO) 0.5 % (0.0-2.0); EOSINOPHILS % (AUTO) 0.3 % (0.0-6.0); LYMPHOCYTES # (AUTO) 2.1 K/uL (0.8-4.8); LYMPHOCYTES % (AUTO) 23.4 % (20.0-44.0); MEAN CORPUSCULAR HEMOGLOBIN 30 PG (26.0-33.0); MEAN CORPUSCULAR HGB CONC 31 g/dl (31.0-36.0); MEAN CORPUSCULAR VOLUME 96 fL (80-96); MONOCYTES # (AUTO) 0.6 K/uL (0.1-1.30); MONOCYTES % (AUTO) 7.1 % (2.0-12.0); NEUTROPHILS # (AUTO) 6.1 K/uL (1.8-8.9); NEUTROPHILS % (AUTO) 68.7 % (43.0-81.0); PLATELET COUNT (AUTO) 380 K/uL (150-450); RED CELL DISTRIBUTION WIDTH 21.7 % (11.5-15.0); WHITE BLOOD COUNT (AUTO) 8.8 K/uL (4.3-11.0)
[2024-06-16 13:07] LABS: HEMATOCRIT 19 % (39-51)
[2024-06-16 14:19] LABS: EOSINOPHILS % (MANUAL) 1 % (0-4); LYMPHOCYTES % (MANUAL) 18 % (16-48); MONOCYTES % (MANUAL) 5 % (0-11.0); NEUTROPHILS % (MANUAL) 76 (42-76)
[2024-06-16 14:20] LABS: ANISOCYTOSIS 1+; HYPOCHROMASIA 1+; PLATELET ESTIMATE ADEQUATE
[2024-06-16 16:26] VITALS: BP 138/60; TEMP 98.2; O2SAT 100
[2024-06-16] MEDS: CEFTRIAXONE 1 G in IV D5W 50 ML IV SCH (16:56)
[2024-06-16 20:28] VITALS: BP 97/67; TEMP 98.4; O2SAT 97
[2024-06-17] VITALS (9 sets, daily range): BP systolic 104–119; BP diastolic 70–81; TEMP 97.3–98.2; O2SAT 91–100
[2024-06-17 11:10] LABS: PTH, INTACT 45 pg/mL (15-65)
[2024-06-17 11:48] LABS: CALCIUM, SERUM 8.1 mg/dL (8.5-10.1); CREATININE 3.2 mg/dL (0.6-1.3); POTASSIUM 4.3 mmol/L (3.5-5.1)
[2024-06-17 11:49] LABS: BASOPHILS % (AUTO) 0.3 % (0.0-2.0); EOSINOPHILS % (AUTO) 0.6 % (0.0-6.0); HEMATOCRIT 27 % (39-51); HEMOGLOBIN 7.8 g/dL (13.5-17.5); LYMPHOCYTES # (AUTO) 1.8 K/uL (0.8-4.8); LYMPHOCYTES % (AUTO) 24.7 % (20.0-44.0); MEAN CORPUSCULAR HEMOGLOBIN 30 PG (26.0-33.0); MEAN CORPUSCULAR HGB CONC 29 g/dl (31.0-36.0); MEAN CORPUSCULAR VOLUME 102 fL (80-96); MONOCYTES # (AUTO) 0.5 K/uL (0.1-1.30); MONOCYTES % (AUTO) 7.2 % (2.0-12.0); NEUTROPHILS # (AUTO) 4.8 K/uL (1.8-8.9); NEUTROPHILS % (AUTO) 67.2 % (43.0-81.0); PLATELET COUNT (AUTO) 220 K/uL (150-450); RED BLOOD CELL COUNT(AUTO) 2.62 MIL/uL (4.5-6.0); RED CELL DISTRIBUTION WIDTH 22.6 % (11.5-15.0); WHITE BLOOD COUNT (AUTO) 7.2 K/uL (4.3-11.0)
[2024-06-17 15:41] LABS: IRON, SERUM 78 ug/dl (50-175); TOTAL IRON BINDING CAPACITY 178 ug/dl (250-450)
[2024-06-17 15:57] LABS: FERRITIN 791 ng/mL (8-388)
[2024-06-17] MEDS: IV NS 0.9% 1,000 ML IV PRN (23:02)
[2024-06-18 04:00] VITALS: BP 110/74; TEMP 97.5; O2SAT 100
[2024-06-18 08:00] VITALS: BP 105/73; TEMP 97.5; O2SAT 98
[2024-06-18 08:57] VITALS: BP 105/73
[2024-06-18 10:46] LABS: BASOPHILS % (AUTO) 0.5 % (0.0-2.0); EOSINOPHILS % (AUTO) 0.6 % (0.0-6.0); HEMATOCRIT 26 % (39-51); HEMOGLOBIN 8.2 g/dL (13.5-17.5); LYMPHOCYTES # (AUTO) 1.2 K/uL (0.8-4.8); LYMPHOCYTES % (AUTO) 19.6 % (20.0-44.0); MEAN CORPUSCULAR HEMOGLOBIN 29 PG (26.0-33.0); MEAN CORPUSCULAR HGB CONC 31 g/dl (31.0-36.0); MEAN CORPUSCULAR VOLUME 93 fL (80-96); MONOCYTES # (AUTO) 0.3 K/uL (0.1-1.30); MONOCYTES % (AUTO) 5.4 % (2.0-12.0); NEUTROPHILS # (AUTO) 4.6 K/uL (1.8-8.9); NEUTROPHILS % (AUTO) 73.9 % (43.0-81.0); PLATELET COUNT (AUTO) 303 K/uL (150-450); RED BLOOD CELL COUNT(AUTO) 2.82 MIL/uL (4.5-6.0); RED CELL DISTRIBUTION WIDTH 22.6 % (11.5-15.0); WHITE BLOOD COUNT (AUTO) 6.2 K/uL (4.3-11.0)
[2024-06-18 13:12] LABS: BILIRUBIN,TOTAL 0.4 mg/dL (0.2-1.0); CREATININE 2.7 mg/dL (0.6-1.3); PHOSPHORUS 4.3 mg/dL (2.5-4.9); TOTAL PROTEIN, SERUM 6.5 g/dL (6.4-8.2)
[2024-06-18 13:22] LABS: POTASSIUM 3.4 mmol/L (3.5-5.1)
[2024-06-18 13:37] LABS: ALBUMIN 1.3 g/dL (3.4-5.0)
[2024-06-19 06:10] LABS: PTH, INTACT 27 pg/mL (15-65)
[2024-06-19 09:07] LABS: *SPE A/G RATIO 0.5 (0.7-1.7); *SPE ALBUMIN 1.9 g/dL (2.9-4.4); *SPE ALPHA-1-GLOBULIN 0.4 g/dL (0.0-0.4); *SPE ALPHA-2-GLOBULIN 0.9 g/dL (0.4-1.0); *SPE BETA GLOBULIN 1.2 g/dL (0.7-1.3); *SPE GLOBULIN, TOTAL 3.9 g/dL (2.2-3.9); *SPE M-SPIKE Not Observed g/dL (Not Observed); *SPE PROTEIN TOTAL 5.8 g/dL (6.0-8.5); *SPEGAMMA GLOBULIN 1.5 g/dL (0.4-1.8)
[2024-06-20 10:10] LABS: *SPE A/G RATIO 0.5 (0.7-1.7); *SPE ALBUMIN 1.9 g/dL (2.9-4.4); *SPE ALPHA-1-GLOBULIN 0.4 g/dL (0.0-0.4); *SPE ALPHA-2-GLOBULIN 0.8 g/dL (0.4-1.0); *SPE M-SPIKE Not Observed g/dL (Not Observed); *SPE PROTEIN TOTAL 5.9 g/dL (6.0-8.5); *SPEGAMMA GLOBULIN 1.7 g/dL (0.4-1.8)
== END 2024-06-18 15:33 | DRG 241 ==
LOC: ER 14:35 → TRANSITION 19:00 → UNDOADMIN 06-14 00:35 → TRANSITION 06-14 00:35 → MEDSG1 06-14 07:21 → TRANSITION 06-14 07:21
PROVIDERS: ADMIT Nurse Practitioner Family; ATTEND Internal Medicine
PROC: 0DB68ZX Excision of Stomach, Via Natural or Artificial Opening Endoscopic, Diagnostic (ICD-10-PCS; principal; 2024-06-17)
PROC: 30233N1 Transfusion of Nonautologous Red Blood Cells into Peripheral Vein, Percutaneous Approach (ICD-10-PCS; 2024-06-17)
DX: K29.71 Gastritis, unspecified, with bleeding (principal); I50.33 Acute on chronic diastolic (congestive) heart failure; G93.41 Metabolic encephalopathy; E43 Unspecified severe protein-calorie malnutrition; R64 Cachexia; N17.9 Acute kidney failure, unspecified; E83.51 Hypocalcemia; D62 Acute posthemorrhagic anemia; I27.20 Pulmonary hypertension, unspecified; G20.A1 Parkinson's disease without dyskinesia, without mention of fluctuations; E87.1 Hypo-osmolality and hyponatremia; I48.0 Paroxysmal atrial fibrillation; F01.50 Vascular dementia, unspecified severity, without behavioral disturbance, psychotic disturbance, mood disturbance, and anxiety; Z86.73 Personal history of transient ischemic attack (TIA), and cerebral infarction without residual deficits; E78.5 Hyperlipidemia, unspecified; E87.5 Hyperkalemia; E88.09 Other disorders of plasma-protein metabolism, not elsewhere classified; F41.9 Anxiety disorder, unspecified; K21.9 Gastro-esophageal reflux disease without esophagitis; N18.30 Chronic kidney disease, stage 3 unspecified; N39.0 Urinary tract infection, site not specified; N40.1 Benign prostatic hyperplasia with lower urinary tract symptoms; Z87.01 Personal history of pneumonia (recurrent); G89.29 Other chronic pain; Z68.20 Body mass index [BMI] 20.0-20.9, adult; Z86.79 Personal history of other diseases of the circulatory system; I13.0 Hypertensive heart and chronic kidney disease with heart failure and stage 1 through stage 4 chronic kidney disease, or unspecified chronic kidney disease
CPT/HCPCS: 36415; 76770-TC; 80048-TC; 80053-TC; 80061-TC; 80076-TC; 81001; 82140-TC; 82272-TC; 82550-TC; 82607-TC; 82728-TC; 83540-TC; 83735-TC; 83880; 83921; 83970; 84100-TC; 84155; 84165; 84443-TC; 85025-TC; 85027-TC; 85610-TC; 85730-TC; 86850-TC; 87086-TC; G0378; J0696; J0885; J2470; J2704; J3490; J7030; J7040; J7050; J7060; P9016

== ENCOUNTER 2024-07-08 10:48 | Inpatient (IN) | payer OTHER ==
[~2024-07-08] VITALS: Ht 165.1 cm; Wt 55.8 kg
[~2024-07-08 10:48] MED LIST changes: +ACET325T53 PO; -ASPI-1169 PO; -ATOR40TA PO; +BISA10SU11 RC; -COLC0.6T67 PO; -DEXAMETHASONE RIGHTEYE; +DOCU100C36 PO; +EPOE40007 SQ; -GABA300C PO; +IPRA3AMP23 NEB; -LIDO30AD10 TP; +LORA-258 PO; +MAGN400O6 PO; +METO25TA20 PO; +NA P133E RC; +POLY119P17 PO; -POTA20PA3 PO; -TAMS-12 PO; -TOBR5DRO36 RIGHTEYE
[2024-07-08 11:25] LABS: BASOPHILS % (AUTO) 0.4 % (0.0-2.0); EOSINOPHILS % (AUTO) 0.2 % (0.0-6.0); HEMATOCRIT 36 % (39-51); HEMOGLOBIN 11.1 g/dL (13.5-17.5); LYMPHOCYTES # (AUTO) 1.3 K/uL (0.8-4.8); MEAN CORPUSCULAR HEMOGLOBIN 31 PG (26.0-33.0); MEAN CORPUSCULAR HGB CONC 31 g/dl (31.0-36.0); MEAN CORPUSCULAR VOLUME 98 fL (80-96); MONOCYTES # (AUTO) 0.2 K/uL (0.1-1.30); MONOCYTES % (AUTO) 3.3 % (2.0-12.0); NEUTROPHILS # (AUTO) 4.8 K/uL (1.8-8.9); NEUTROPHILS % (AUTO) 76.1 % (43.0-81.0); PLATELET COUNT (AUTO) 193 K/uL (150-450); RED BLOOD CELL COUNT(AUTO) 3.65 MIL/uL (4.5-6.0); RED CELL DISTRIBUTION WIDTH 24.4 % (11.5-15.0); WHITE BLOOD COUNT (AUTO) 6.3 K/uL (4.3-11.0)
[2024-07-08 11:26] LABS: CALCIUM, SERUM 8.7 mg/dL (8.5-10.1); CARBON DIOXIDE 22 mmol/L (21-32); CHLORIDE 107 mmol/L (98-107); CREATININE 2.2 mg/dL (0.6-1.3); GLUCOSE 110 mg/dL (74-106); POTASSIUM 4.9 mmol/L (3.5-5.1); SODIUM SERUM 140 mmol/L (136-145); UREA NITROGEN, BLOOD 67 mg/dL (7-18)
[2024-07-08 11:41] LABS: NT-PRO BNP 21978 pg/mL (0-125)
[2024-07-08] MEDS ORDERED: LEVOFLOXACIN 750 MG /D5W 150ML 150 ML IV ONE (12:30)
[2024-07-08] MEDS ORDERED: PIPERACILLIN /TAZOBACTAM 3.375 G in IV D5W 50 ML IV ONE (12:30)
[2024-07-08] MEDS ORDERED: DUTA0.5C37 PO (12:59)
[2024-07-08] MEDS ORDERED: ATOR10TA PO (12:59)
[2024-07-08] MEDS ORDERED: LOSA25TA27 PO (12:59)
[2024-07-08] MEDS ORDERED: ACET-637 PO (12:59)
[2024-07-08] MEDS ORDERED: TAMS-12 PO (12:59)
[2024-07-08] MEDS ORDERED: PANT40SU2 PO (12:59)
[2024-07-08] MEDS ORDERED: AMLO-213 PO (12:59)
[2024-07-08] MEDS ORDERED: FUROSEMIDE 40 MG/4 ML VIAL ONE (13:19)
[2024-07-08] MEDS: FUROSEMIDE 40 MG/4 ML VIAL IV ONE (13:20)
[2024-07-08] MEDS: CEFTRIAXONE 1GM BAG (ER ONLY) 1 GM/50 ML PIGGYBACK IV ONE (13:30)
[2024-07-08 13:44] LABS: BILIRUBIN,DIRECT 0.3 mg/dL (0.0-0.2); BILIRUBIN,TOTAL 0.6 mg/dL (0.2-1.0)
[2024-07-08 13:53] LABS: LACTIC ACID REFLEX 2.1 mmol/L (0.4-1.9)
[2024-07-08] MEDS: AZITHROMYCIN 500 MG in IV D5W 250 ML IV ONE (14:00)
[2024-07-08] MEDS: ENOXAPARIN SODIUM 30 MG/0.3 ML DISP.SYRIN SQ SCH (15:00)
[2024-07-08] MEDS ORDERED: MAGNESIUM HYDROXIDE 30 ML UDC PO PRN (15:00)
[2024-07-08] MEDS ORDERED: MAG HYDROX/AL HYDROX/SIMETH 30 ML UDC PO PRN (15:00)
[2024-07-08] MEDS ORDERED: NA PHOS,M-B/NA PHOS,DI-BA 1 EA ENEMA RC PRN (15:00)
[2024-07-08] MEDS: METOPROLOL TARTRATE 25 MG TABLET PO SCH (17:00)
[2024-07-08] MEDS: DOCUSATE SODIUM 100 MG CAPSULE PO SCH (17:00)
[2024-07-08] MEDS: LOSARTAN POTASSIUM 25 MG TABLET PO SCH (17:00)
[2024-07-08] MEDS: BUMETANIDE INJ 16 MG in IV NS 0.9% 16 ML IV ONE (17:14)
[2024-07-08 20:00] VITALS: BP 99/78; TEMP 97.3; O2SAT 94
[2024-07-08] MEDS ORDERED: FUROSEMIDE 40 MG/4 ML VIAL IV SCH (21:00)
[2024-07-08] MEDS: TAMSULOSIN 0.4 MG CAP.SR.24H PO SCH (22:23)
[2024-07-08] MEDS: BUMETANIDE INJ 0.25 MG/ML VIAL ONE ×4 (22:28→23:56)
[2024-07-08] MEDS ORDERED: BUMETANIDE INJ 16 MG in IV NS 0.9% 16 ML IV ONE (22:30)
[2024-07-08] MEDS: ACETAMINOPHEN 325 MG TABLET PO PRN (23:12)
[2024-07-09] VITALS (36 sets, daily range): BP systolic 92–147; BP diastolic 69–97; TEMP 97.2–98.6; O2SAT 80–100
[2024-07-09] MEDS: BUMETANIDE INJ 16 MG in IV NS 0.9% 16 ML IV ONE (00:05)
[2024-07-09 01:13] LABS: ABG BASE EXCESS -8.1 mmol/L (-2.0-3.0); ABG OXYGEN SATURATION 88.2 % (94.0-98.0); ABG PCO2 25.5 mmHg (35.0-48.0); ABG PH 7.397 (7.350-7.450); ABG PO2 59.1 mmHg (83.0-108.0); ABG TOTAL HEMOGLOBIN 10.6 G/dL (13.5-17.5); COHb 0.1 % (0.5-1.5); O2Hb 88.1 % (94.0-97.0); SITE, ABG RIGHT RADIAL
[2024-07-09 06:57] LABS: ABG BASE EXCESS -9.2 mmol/L (-2.0-3.0); ABG OXYGEN SATURATION 81.4 % (94.0-98.0); ABG PO2 50.9 mmHg (83.0-108.0); ABG TOTAL HEMOGLOBIN 10.6 G/dL (13.5-17.5); COHb 0.1 % (0.5-1.5); MetHb 0.3 % (0.0-1.5); O2Hb 81.1 % (94.0-97.0); SITE, ABG RIGHT RADIAL
[2024-07-09] MEDS: PANTOPRAZOLE 40 MG/PACK PACK PO SCH (07:30)
[2024-07-09 07:49] LABS: BASOPHILS % (AUTO) 0.2 % (0.0-2.0); HEMATOCRIT 32 % (39-51); HEMOGLOBIN 9.9 g/dL (13.5-17.5); LYMPHOCYTES # (AUTO) 0.6 K/uL (0.8-4.8); LYMPHOCYTES % (AUTO) 5.5 % (20.0-44.0); MEAN CORPUSCULAR HEMOGLOBIN 31 PG (26.0-33.0); MEAN CORPUSCULAR HGB CONC 31 g/dl (31.0-36.0); MEAN CORPUSCULAR VOLUME 100 fL (80-96); MONOCYTES # (AUTO) 0.5 K/uL (0.1-1.30); MONOCYTES % (AUTO) 4.3 % (2.0-12.0); NEUTROPHILS # (AUTO) 9.9 K/uL (1.8-8.9); PLATELET COUNT (AUTO) 179 K/uL (150-450); RED BLOOD CELL COUNT(AUTO) 3.23 MIL/uL (4.5-6.0)
[2024-07-09 07:59] LABS: CALCIUM, SERUM 8.1 mg/dL (8.5-10.1); CREATININE 2.4 mg/dL (0.6-1.3); MAGNESIUM 2.5 mg/dL (1.8-2.4); PHOSPHORUS 6.3 mg/dL (2.5-4.9); POTASSIUM 5.1 mmol/L (3.5-5.1)
[2024-07-09] MEDS: DUTASTERIDE (0.5 MG) 0.5 MG CAPSULE PO SCH (08:38)
[2024-07-09] MEDS ORDERED: AMLODIPINE BESYLATE 10 MG TABLET PO SCH (09:00)
[2024-07-09] MEDS ORDERED: PIPERACILLIN /TAZOBACTAM 3.375 G in IV D5W 50 ML IV SCH (11:00)
[2024-07-09] MEDS: ZOSYN IVPB 2.25 G in IV D5W 50ml IV SCH (11:54)
[2024-07-09 13:19] LABS: APPEARANCE,URINE CLEAR (CLEAR); BILIRUBIN,URINE NEGATIVE (NEGATIVE); BLOOD, URINE 1+ Ery/uL (NEGATIVE); COLOR,URINE YELLOW (YELLOW); KETONES,URINE NEGATIVE (NEGATIVE); LEUKOCYTE ESTERASE ,URINE 1+ (NEGATIVE); NITRITE, URINE POSITIVE (NEGATIVE); PH,URINE 5.5 (5.0-8.0); PROTEIN,URINE 1+ mg/dl (NEGATIVE); UGLUCOSE NEGATIVE (NEGATIVE); UROBILINOGEN,URINE 0.2 EU/dL (0.2)
[2024-07-09 13:22] LABS: ADD URINE CULTURE YES; BACTERIA,URINE Moderate /HPF (None Seen); RBC,URINE 0-2 /HPF (0-2); SQUAMOUS EPITHELIAL CELL,UR Few /HPF (None Seen)
[2024-07-09 13:38] LABS: EOSINOPHIL,URINE None Seen
[2024-07-09 13:55] LABS: CREATININE, URINE < 13.0 MG/DL (30.0-125.0); URINE SODIUM, RANDOM 110 mmol/l (40-220); URINE TOTAL PROTEIN 44.8 mg/dL (0-11.9)
[2024-07-10] VITALS (25 sets, daily range): BP systolic 98–129; BP diastolic 73–84; TEMP 97.4–98.5; O2SAT 88–98
[2024-07-10 04:36] LABS: BASOPHILS % (AUTO) 0.1 % (0.0-2.0); EOSINOPHILS % (AUTO) 0.1 % (0.0-6.0); HEMATOCRIT 29 % (39-51); HEMOGLOBIN 9.1 g/dL (13.5-17.5); LYMPHOCYTES # (AUTO) 1.3 K/uL (0.8-4.8); MEAN CORPUSCULAR HEMOGLOBIN 30 PG (26.0-33.0); MEAN CORPUSCULAR HGB CONC 32 g/dl (31.0-36.0); MEAN CORPUSCULAR VOLUME 96 fL (80-96); MONOCYTES # (AUTO) 0.7 K/uL (0.1-1.30); MONOCYTES % (AUTO) 6.4 % (2.0-12.0); NEUTROPHILS # (AUTO) 8.3 K/uL (1.8-8.9); NEUTROPHILS % (AUTO) 80.4 % (43.0-81.0); PLATELET COUNT (AUTO) 165 K/uL (150-450); RED CELL DISTRIBUTION WIDTH 24.2 % (11.5-15.0); WHITE BLOOD COUNT (AUTO) 10.3 K/uL (4.3-11.0)
[2024-07-10 05:22] LABS: ALBUMIN 1.9 g/dL (3.4-5.0); BILIRUBIN,TOTAL 0.8 mg/dL (0.2-1.0); CALCIUM, SERUM 8.2 mg/dL (8.5-10.1); CREATININE 2.5 mg/dL (0.6-1.3); MAGNESIUM 2.2 mg/dL (1.8-2.4); POTASSIUM 3.5 mmol/L (3.5-5.1); TOTAL PROTEIN, SERUM 6.1 g/dL (6.4-8.2)
[2024-07-10] MEDS: BUMETANIDE INJ 16 MG in IV NS 0.9% 16 ML IV ONE (09:48)
[2024-07-11] VITALS: BP 123/70; TEMP 97.6; O2SAT 96
[2024-07-11 04:00] VITALS: BP 127/69; TEMP 97.5; O2SAT 96
[2024-07-11 07:16] LABS: BASOPHILS % (AUTO) 0.2 % (0.0-2.0); EOSINOPHILS # (AUTO) 0.1 K/uL (0.0-0.7); EOSINOPHILS % (AUTO) 1.1 % (0.0-6.0); HEMATOCRIT 35 % (39-51); HEMOGLOBIN 10.7 g/dL (13.5-17.5); LYMPHOCYTES % (AUTO) 25.2 % (20.0-44.0); MEAN CORPUSCULAR HEMOGLOBIN 31 PG (26.0-33.0); MEAN CORPUSCULAR HGB CONC 31 g/dl (31.0-36.0); MEAN CORPUSCULAR VOLUME 101 fL (80-96); MONOCYTES # (AUTO) 0.5 K/uL (0.1-1.30); MONOCYTES % (AUTO) 6.8 % (2.0-12.0); NEUTROPHILS # (AUTO) 5.2 K/uL (1.8-8.9); NEUTROPHILS % (AUTO) 66.7 % (43.0-81.0); PLATELET COUNT (AUTO) 164 K/uL (150-450); RED BLOOD CELL COUNT(AUTO) 3.48 MIL/uL (4.5-6.0); RED CELL DISTRIBUTION WIDTH 23.8 % (11.5-15.0); WHITE BLOOD COUNT (AUTO) 7.8 K/uL (4.3-11.0)
[2024-07-11 08:00] VITALS: BP 109/75; TEMP 97.5; O2SAT 96
[2024-07-11 08:20] LABS: ALBUMIN 1.9 g/dL (3.4-5.0); BILIRUBIN,TOTAL 0.8 mg/dL (0.2-1.0); CREATININE 2.4 mg/dL (0.6-1.3); MAGNESIUM 2.1 mg/dL (1.8-2.4); PHOSPHORUS 4.3 mg/dL (2.5-4.9); POTASSIUM 3.3 mmol/L (3.5-5.1); TOTAL PROTEIN, SERUM 6.6 g/dL (6.4-8.2)
[2024-07-11] MEDS: POTASSIUM CHLORIDE 20 MEQ TAB.PRT.SR PO SCH (11:00)
[2024-07-11] MEDS: BUMETANIDE INJ 16 MG in IV NS 0.9% 16 ML IV ONE (11:02)
[2024-07-11 12:00] VITALS: BP 92/68; TEMP 98.1; O2SAT 98
[2024-07-11 13:09] LABS: *SPE A/G RATIO 0.7 (0.7-1.7); *SPE ALBUMIN 2.3 g/dL (2.9-4.4); *SPE ALPHA-1-GLOBULIN 0.3 g/dL (0.0-0.4); *SPE ALPHA-2-GLOBULIN 0.6 g/dL (0.4-1.0); *SPE GLOBULIN, TOTAL 3.5 g/dL (2.2-3.9); *SPE M-SPIKE Not Observed g/dL (Not Observed); *SPE PROTEIN TOTAL 5.8 g/dL (6.0-8.5); *SPEGAMMA GLOBULIN 1.6 g/dL (0.4-1.8)
[2024-07-11 16:00] VITALS: BP 100/75; TEMP 97.9; O2SAT 96
[2024-07-11 23:06] VITALS: BP 105/76; TEMP 97.7; O2SAT 100
[2024-07-12 03:38] VITALS: TEMP 97.7; O2SAT 98
[2024-07-12 04:56] VITALS: BP 107/83; TEMP 97.7; O2SAT 98
[2024-07-12 08:11] LABS: BASOPHILS % (AUTO) 0.2 % (0.0-2.0); EOSINOPHILS # (AUTO) 0.1 K/uL (0.0-0.7); HEMATOCRIT 34 % (39-51); HEMOGLOBIN 10.9 g/dL (13.5-17.5); LYMPHOCYTES # (AUTO) 1.4 K/uL (0.8-4.8); LYMPHOCYTES % (AUTO) 20.4 % (20.0-44.0); MEAN CORPUSCULAR HEMOGLOBIN 30 PG (26.0-33.0); MEAN CORPUSCULAR HGB CONC 32 g/dl (31.0-36.0); MEAN CORPUSCULAR VOLUME 95 fL (80-96); MONOCYTES # (AUTO) 0.4 K/uL (0.1-1.30); MONOCYTES % (AUTO) 6.2 % (2.0-12.0); NEUTROPHILS # (AUTO) 5.1 K/uL (1.8-8.9); NEUTROPHILS % (AUTO) 72.2 % (43.0-81.0); PLATELET COUNT (AUTO) 175 K/uL (150-450); RED CELL DISTRIBUTION WIDTH 23.1 % (11.5-15.0)
[2024-07-12 08:29] LABS: ALBUMIN 2.1 g/dL (3.4-5.0); BILIRUBIN,TOTAL 0.8 mg/dL (0.2-1.0); CALCIUM, SERUM 8.1 mg/dL (8.5-10.1); CREATININE 2.2 mg/dL (0.6-1.3); MAGNESIUM 1.9 mg/dL (1.8-2.4); PHOSPHORUS 4.8 mg/dL (2.5-4.9); TOTAL PROTEIN, SERUM 6.8 g/dL (6.4-8.2)
[2024-07-12] MEDS: METOLAZONE 2.5 MG TABLET PO SCH (09:00)
[2024-07-12 09:27] LABS: POTASSIUM 2.7 mmol/L (3.5-5.1)
[2024-07-12] MEDS: FUROSEMIDE 100 MG/10 ML VIAL IV SCH (10:18)
[2024-07-12] MEDS: POTASSIUM CL. PREMIX PERIPHER. 50 ML IV SCH (10:18)
[2024-07-12 11:08] LABS: PTH, INTACT 56 pg/mL (15-65)
[2024-07-12 12:00] VITALS: BP 108/85; TEMP 97.5; O2SAT 100
[2024-07-12 16:00] VITALS: BP 106/76; TEMP 97.5; O2SAT 99
[2024-07-12 18:11] LABS: ABG BASE EXCESS 0.4 mmol/L (-2.0-3.0); ABG PCO2 28.8 mmHg (35.0-48.0); ABG PH 7.512 (7.350-7.450); ABG PO2 106.7 mmHg (83.0-108.0); ABG TOTAL HEMOGLOBIN 11.7 G/dL (13.5-17.5); COHb 0.1 % (0.5-1.5); MetHb 0.5 % (0.0-1.5); O2Hb 97.4 % (94.0-97.0); SITE, ABG RIGHT RADIAL
[2024-07-12] MEDS: FUROSEMIDE 100 MG/10 ML VIAL IV ONE (19:32)
[2024-07-12 20:00] VITALS: BP 103/75; TEMP 97.3; O2SAT 100
[2024-07-13] VITALS: BP 110/83; TEMP 97.7; O2SAT 100
[2024-07-13] MEDS: LORAZEPAM 0.5 MG TABLET PO PRN (01:22)
[2024-07-13 04:00] VITALS: BP 104/83; TEMP 98.2; O2SAT 98
[2024-07-13 07:14] LABS: BASOPHILS % (AUTO) 0.2 % (0.0-2.0); EOSINOPHILS # (AUTO) 0.1 K/uL (0.0-0.7); EOSINOPHILS % (AUTO) 1.2 % (0.0-6.0); HEMATOCRIT 35 % (39-51); HEMOGLOBIN 11.5 g/dL (13.5-17.5); LYMPHOCYTES # (AUTO) 1.8 K/uL (0.8-4.8); LYMPHOCYTES % (AUTO) 26.1 % (20.0-44.0); MEAN CORPUSCULAR HEMOGLOBIN 31 PG (26.0-33.0); MEAN CORPUSCULAR HGB CONC 33 g/dl (31.0-36.0); MEAN CORPUSCULAR VOLUME 95 fL (80-96); MONOCYTES # (AUTO) 0.5 K/uL (0.1-1.30); MONOCYTES % (AUTO) 7.6 % (2.0-12.0); NEUTROPHILS # (AUTO) 4.6 K/uL (1.8-8.9); NEUTROPHILS % (AUTO) 64.9 % (43.0-81.0); PLATELET COUNT (AUTO) 164 K/uL (150-450); RED BLOOD CELL COUNT(AUTO) 3.74 MIL/uL (4.5-6.0); RED CELL DISTRIBUTION WIDTH 22.4 % (11.5-15.0)
[2024-07-13 07:39] LABS: ALANINE AMINOTRANSFERASE 54 U/L (12-78); ALBUMIN 2.1 g/dL (3.4-5.0); ALKALINE PHOSPHATASE 294 U/L (46-116); ASPARTATE AMINOTRANSFERASE 30 U/L (15-37); BILIRUBIN,TOTAL 0.6 mg/dL (0.2-1.0); CALCIUM, SERUM 8.1 mg/dL (8.5-10.1); CARBON DIOXIDE 28 mmol/L (21-32); CHLORIDE 104 mmol/L (98-107); CREATININE 2.1 mg/dL (0.6-1.3); GLUCOSE 83 mg/dL (74-106); MAGNESIUM 1.8 mg/dL (1.8-2.4); PHOSPHORUS 3.9 mg/dL (2.5-4.9); POTASSIUM 3.3 mmol/L (3.5-5.1); SODIUM SERUM 142 mmol/L (136-145); TOTAL PROTEIN, SERUM 6.8 g/dL (6.4-8.2); UREA NITROGEN, BLOOD 54 mg/dL (7-18)
[2024-07-13 08:00] VITALS: BP 116/83; TEMP 98.2; O2SAT 100
[2024-07-13] MEDS: FUROSEMIDE 100 MG/10 ML VIAL IV SCH (09:49)
[2024-07-13] MEDS: POTASSIUM CHLORIDE 20 MEQ TAB.PRT.SR PO ONE (09:49)
[2024-07-13 12:00] VITALS: BP 97/79; TEMP 98.2; O2SAT 100
[2024-07-13 16:00] VITALS: BP 107/81; TEMP 97.3; O2SAT 99
[2024-07-13 20:00] VITALS: BP 98/69; TEMP 97.3; O2SAT 100
[2024-07-14] VITALS: BP 107/74; TEMP 97.7; O2SAT 98
[2024-07-14 04:00] VITALS: BP 109/83; TEMP 97.5; O2SAT 96
[2024-07-14 07:04] LABS: BASOPHILS % (AUTO) 0.4 % (0.0-2.0); EOSINOPHILS # (AUTO) 0.1 K/uL (0.0-0.7); EOSINOPHILS % (AUTO) 0.6 % (0.0-6.0); HEMATOCRIT 35 % (39-51); HEMOGLOBIN 11.5 g/dL (13.5-17.5); LYMPHOCYTES # (AUTO) 1.3 K/uL (0.8-4.8); LYMPHOCYTES % (AUTO) 13.2 % (20.0-44.0); MEAN CORPUSCULAR HEMOGLOBIN 31 PG (26.0-33.0); MEAN CORPUSCULAR HGB CONC 33 g/dl (31.0-36.0); MEAN CORPUSCULAR VOLUME 95 fL (80-96); MONOCYTES # (AUTO) 0.7 K/uL (0.1-1.30); NEUTROPHILS # (AUTO) 7.5 K/uL (1.8-8.9); NEUTROPHILS % (AUTO) 78.8 % (43.0-81.0); PLATELET COUNT (AUTO) 138 K/uL (150-450); RED BLOOD CELL COUNT(AUTO) 3.71 MIL/uL (4.5-6.0); RED CELL DISTRIBUTION WIDTH 22.2 % (11.5-15.0); WHITE BLOOD COUNT (AUTO) 9.5 K/uL (4.3-11.0)
[2024-07-14 07:06] LABS: ALBUMIN 2.2 g/dL (3.4-5.0); BILIRUBIN,TOTAL 0.6 mg/dL (0.2-1.0); CALCIUM, SERUM 8.3 mg/dL (8.5-10.1); CREATININE 2.1 mg/dL (0.6-1.3); MAGNESIUM 1.7 mg/dL (1.8-2.4); PHOSPHORUS 4.1 mg/dL (2.5-4.9); POTASSIUM 3.1 mmol/L (3.5-5.1)
[2024-07-14 08:00] VITALS: BP 100/76; TEMP 97.9; O2SAT 99
[2024-07-14] MEDS: MAGNESIUM OXIDE 400 MG TABLET PO ONE (09:54)
[2024-07-14] MEDS: POTASSIUM CHLORIDE 20 MEQ TAB.PRT.SR PO SCH (09:54)
[2024-07-14] MEDS: FUROSEMIDE 100 MG/10 ML VIAL IV SCH (11:04)
[2024-07-14 12:00] VITALS: BP 108/78; TEMP 97.9; O2SAT 99
[2024-07-14 16:00] VITALS: BP 95/76; TEMP 98.1; O2SAT 100
[2024-07-14 16:36] LABS: CALCIUM, SERUM 8.6 mg/dL (8.5-10.1); CREATININE 2.1 mg/dL (0.6-1.3); MAGNESIUM 1.7 mg/dL (1.8-2.4); POTASSIUM 3.7 mmol/L (3.5-5.1)
[2024-07-14] MEDS: Magnesium 1GM/D5W 100ML PREMIX 100 ML IV STA (18:15)
[2024-07-14 20:00] VITALS: BP 95/75; TEMP 97.7; O2SAT 100
[2024-07-15] VITALS: TEMP 97.7; O2SAT 100
[2024-07-15 04:00] VITALS: BP 105/74; TEMP 98.2; O2SAT 100
[2024-07-15 07:43] LABS: ALBUMIN 2.1 g/dL (3.4-5.0); BILIRUBIN,TOTAL 0.5 mg/dL (0.2-1.0); CALCIUM, SERUM 8.2 mg/dL (8.5-10.1); CREATININE 1.9 mg/dL (0.6-1.3); MAGNESIUM 2.2 mg/dL (1.8-2.4); PHOSPHORUS 4.1 mg/dL (2.5-4.9); POTASSIUM 3.2 mmol/L (3.5-5.1); TOTAL PROTEIN, SERUM 6.6 g/dL (6.4-8.2)
[2024-07-15 07:50] LABS: BASOPHILS % (AUTO) 0.3 % (0.0-2.0); EOSINOPHILS # (AUTO) 0.1 K/uL (0.0-0.7); EOSINOPHILS % (AUTO) 1.2 % (0.0-6.0); HEMATOCRIT 34 % (39-51); HEMOGLOBIN 10.8 g/dL (13.5-17.5); LYMPHOCYTES # (AUTO) 1.8 K/uL (0.8-4.8); LYMPHOCYTES % (AUTO) 24.6 % (20.0-44.0); MEAN CORPUSCULAR HEMOGLOBIN 31 PG (26.0-33.0); MEAN CORPUSCULAR HGB CONC 32 g/dl (31.0-36.0); MEAN CORPUSCULAR VOLUME 97 fL (80-96); MONOCYTES # (AUTO) 0.6 K/uL (0.1-1.30); MONOCYTES % (AUTO) 7.6 % (2.0-12.0); NEUTROPHILS # (AUTO) 4.9 K/uL (1.8-8.9); NEUTROPHILS % (AUTO) 66.3 % (43.0-81.0); PLATELET COUNT (AUTO) 117 K/uL (150-450); RED BLOOD CELL COUNT(AUTO) 3.49 MIL/uL (4.5-6.0); RED CELL DISTRIBUTION WIDTH 21.9 % (11.5-15.0); WHITE BLOOD COUNT (AUTO) 7.3 K/uL (4.3-11.0)
[2024-07-15 08:00] VITALS: BP 109/77; TEMP 97.9; O2SAT 100
[2024-07-15] MEDS ORDERED: POTASSIUM CHLORIDE 20 MEQ TAB.PRT.SR PO ONE (10:00)
[2024-07-15] MEDS: APIXABAN 2.5 MG TABLET PO SCH (10:28)
[2024-07-15] MEDS: POTASSIUM CHLORIDE 20 MEQ TAB.PRT.SR PO SCH (11:11)
[2024-07-15 11:21] LABS: INR 1.12 (0.91-1.10); PROTHROMBIN TIME 11.8 SECS (9.2-11.1)
[2024-07-15 12:00] VITALS: BP 167/92; TEMP 97.8; O2SAT 96
[2024-07-15] MEDS: AMIODARONE HCL 200 MG TABLET PO SCH (12:01)
[2024-07-15 16:00] VITALS: BP 151/82; TEMP 97.7; O2SAT 98
[2024-07-15 20:00] VITALS: BP 150/98; TEMP 97.9; O2SAT 100
[2024-07-16] VITALS (9 sets, daily range): BP systolic 78–132; BP diastolic 50–73; TEMP 97.5–97.9; O2SAT 98–100
[2024-07-16 06:53] LABS: BASOPHILS % (AUTO) 0.5 % (0.0-2.0); EOSINOPHILS # (AUTO) 0.1 K/uL (0.0-0.7); EOSINOPHILS % (AUTO) 0.8 % (0.0-6.0); HEMATOCRIT 30 % (39-51); HEMOGLOBIN 9.9 g/dL (13.5-17.5); LYMPHOCYTES % (AUTO) 22.2 % (20.0-44.0); MEAN CORPUSCULAR HEMOGLOBIN 31 PG (26.0-33.0); MEAN CORPUSCULAR HGB CONC 33 g/dl (31.0-36.0); MEAN CORPUSCULAR VOLUME 94 fL (80-96); MONOCYTES # (AUTO) 0.5 K/uL (0.1-1.30); MONOCYTES % (AUTO) 5.5 % (2.0-12.0); NEUTROPHILS # (AUTO) 6.3 K/uL (1.8-8.9); PLATELET COUNT (AUTO) 127 K/uL (150-450); RED BLOOD CELL COUNT(AUTO) 3.22 MIL/uL (4.5-6.0); RED CELL DISTRIBUTION WIDTH 20.9 % (11.5-15.0); WHITE BLOOD COUNT (AUTO) 8.8 K/uL (4.3-11.0)
[2024-07-16 07:43] LABS: CALCIUM, SERUM 8.5 mg/dL (8.5-10.1); CREATININE 2.2 mg/dL (0.6-1.3); POTASSIUM 3.9 mmol/L (3.5-5.1)
[2024-07-16] MEDS: IV NS 0.9% 250 ML IV ONE ×4 (10:43→15:32)
[2024-07-17] VITALS (13 sets, daily range): BP systolic 90–123; BP diastolic 60–91; TEMP 97.9–99; O2SAT 86–99
[2024-07-17 07:28] LABS: BASOPHILS % (AUTO) 0.3 % (0.0-2.0); EOSINOPHILS % (AUTO) 0.5 % (0.0-6.0); HEMATOCRIT 28 % (39-51); HEMOGLOBIN 9.5 g/dL (13.5-17.5); LYMPHOCYTES # (AUTO) 1.9 K/uL (0.8-4.8); LYMPHOCYTES % (AUTO) 18.4 % (20.0-44.0); MEAN CORPUSCULAR HEMOGLOBIN 32 PG (26.0-33.0); MEAN CORPUSCULAR HGB CONC 34 g/dl (31.0-36.0); MEAN CORPUSCULAR VOLUME 94 fL (80-96); MONOCYTES # (AUTO) 0.6 K/uL (0.1-1.30); MONOCYTES % (AUTO) 5.9 % (2.0-12.0); NEUTROPHILS # (AUTO) 7.7 K/uL (1.8-8.9); NEUTROPHILS % (AUTO) 74.9 % (43.0-81.0); PLATELET COUNT (AUTO) 114 K/uL (150-450); RED CELL DISTRIBUTION WIDTH 21.6 % (11.5-15.0); WHITE BLOOD COUNT (AUTO) 10.3 K/uL (4.3-11.0)
[2024-07-17 07:41] LABS: CALCIUM, SERUM 8.1 mg/dL (8.5-10.1); CREATININE 2.3 mg/dL (0.6-1.3); MAGNESIUM 2.3 mg/dL (1.8-2.4); POTASSIUM 4.4 mmol/L (3.5-5.1)
[2024-07-17] MEDS: MIDODRINE HCL (5MG) 5 MG TABLET PO SCH ×2 (10:29→16:43)
[2024-07-17] MEDS: IV NS 0.9% 500 ML IV ONE (11:25)
[2024-07-17] MEDS: BUMETANIDE INJ 0.25 MG/ML VIAL IV ONE (17:57)
[2024-07-17 18:05] LABS: ABG BASE EXCESS -3.7 mmol/L (-2.0-3.0); ABG OXYGEN SATURATION 78.2 % (94.0-98.0); ABG PCO2 27.5 mmHg (35.0-48.0); ABG PH 7.464 (7.350-7.450); ABG PO2 43.3 mmHg (83.0-108.0); ABG TOTAL HEMOGLOBIN 8.6 G/dL (13.5-17.5); COHb 0.1 % (0.5-1.5); MetHb 0.3 % (0.0-1.5); O2Hb 77.9 % (94.0-97.0); SITE, ABG RIGHT RADIAL
[2024-07-17] MEDS ORDERED: NOREPINEPHRINE 8 MG in IV D5W 242 ML IV PRN (19:00)
[2024-07-18] VITALS (24 sets, daily range): BP systolic 94–140; BP diastolic 63–85; TEMP 98–99.2; O2SAT 90–100
[2024-07-18 00:15] LABS: ABG BASE EXCESS -7.7 mmol/L (-2.0-3.0); ABG OXYGEN SATURATION 93.2 % (94.0-98.0); ABG PH 7.353 (7.350-7.450); ABG PO2 78.1 mmHg (83.0-108.0); ABG TOTAL HEMOGLOBIN 10.3 G/dL (13.5-17.5); COHb 0.3 % (0.5-1.5); MetHb 0.3 % (0.0-1.5); O2Hb 92.6 % (94.0-97.0); SITE, ABG RIGHT RADIAL
[2024-07-18] MEDS: LORAZEPAM INJ 2 MG/ML VIAL IV PRN (01:15)
[2024-07-18 04:40] LABS: HEMATOCRIT 29 % (39-51); HEMOGLOBIN 9.2 g/dL (13.5-17.5); LYMPHOCYTES # (AUTO) 0.9 K/uL (0.8-4.8); LYMPHOCYTES % (AUTO) 5.5 % (20.0-44.0); MEAN CORPUSCULAR HEMOGLOBIN 30 PG (26.0-33.0); MEAN CORPUSCULAR HGB CONC 32 g/dl (31.0-36.0); MEAN CORPUSCULAR VOLUME 95 fL (80-96); MONOCYTES # (AUTO) 0.8 K/uL (0.1-1.30); MONOCYTES % (AUTO) 4.8 % (2.0-12.0); NEUTROPHILS # (AUTO) 14.1 K/uL (1.8-8.9); NEUTROPHILS % (AUTO) 89.7 % (43.0-81.0); PLATELET COUNT (AUTO) 144 K/uL (150-450); RED BLOOD CELL COUNT(AUTO) 3.07 MIL/uL (4.5-6.0); WHITE BLOOD COUNT (AUTO) 15.8 K/uL (4.3-11.0)
[2024-07-18 04:52] LABS: CALCIUM, SERUM 8.9 mg/dL (8.5-10.1); CREATININE 2.5 mg/dL (0.6-1.3); MAGNESIUM 2.3 mg/dL (1.8-2.4); PHOSPHORUS 3.8 mg/dL (2.5-4.9); POTASSIUM 4.7 mmol/L (3.5-5.1)
[2024-07-18 08:26] LABS: ABG BASE EXCESS -5.4 mmol/L (-2.0-3.0); ABG OXYGEN SATURATION 85.7 % (94.0-98.0); ABG PH 7.405 (7.350-7.450); ABG PO2 53.4 mmHg (83.0-108.0); COHb 0.3 % (0.5-1.5); MetHb 0.2 % (0.0-1.5); O2Hb 85.3 % (94.0-97.0); SITE, ABG ALINE
[2024-07-18] MEDS: BUMETANIDE INJ 16 MG in IV NS 0.9% 16 ML IV ONE (10:04)
[2024-07-18 15:15] LABS: APPEARANCE,URINE CLOUDY (CLEAR); BILIRUBIN,URINE NEGATIVE (NEGATIVE); BLOOD, URINE 2+ Ery/uL (NEGATIVE); COLOR,URINE YELLOW (YELLOW); KETONES,URINE NEGATIVE (NEGATIVE); LEUKOCYTE ESTERASE ,URINE 2+ (NEGATIVE); NITRITE, URINE NEGATIVE (NEGATIVE); PROTEIN,URINE 3+ mg/dl (NEGATIVE); UGLUCOSE NEGATIVE (NEGATIVE); UROBILINOGEN,URINE 0.2 EU/dL (0.2)
[2024-07-18 15:22] LABS: ADD URINE CULTURE YES; BACTERIA,URINE Moderate /HPF (None Seen); RBC,URINE 0-2 /HPF (0-2); SQUAMOUS EPITHELIAL CELL,UR Few /HPF (None Seen); WBC,URINE TOO NUMEROUS TO COUN /HPF (0-3)
[2024-07-18 15:25] LABS: CREATININE, URINE 73.8 MG/DL (30.0-125.0); URINE TOTAL PROTEIN 303.8 mg/dL (0-11.9)
[2024-07-18 18:14] LABS: EOSINOPHIL,URINE None Seen
[2024-07-19] VITALS (31 sets, daily range): BP systolic 95–119; BP diastolic 32–89; TEMP 98–98.3; O2SAT 88–100
[2024-07-19 05:16] LABS: BASOPHILS % (AUTO) 0.1 % (0.0-2.0); EOSINOPHILS % (AUTO) 0.2 % (0.0-6.0); HEMATOCRIT 24 % (39-51); LYMPHOCYTES # (AUTO) 1.1 K/uL (0.8-4.8); LYMPHOCYTES % (AUTO) 12.2 % (20.0-44.0); MEAN CORPUSCULAR HEMOGLOBIN 31 PG (26.0-33.0); MEAN CORPUSCULAR HGB CONC 33 g/dl (31.0-36.0); MEAN CORPUSCULAR VOLUME 94 fL (80-96); MONOCYTES # (AUTO) 0.4 K/uL (0.1-1.30); MONOCYTES % (AUTO) 5.1 % (2.0-12.0); NEUTROPHILS # (AUTO) 7.2 K/uL (1.8-8.9); NEUTROPHILS % (AUTO) 82.4 % (43.0-81.0); PLATELET COUNT (AUTO) 114 K/uL (150-450); RED BLOOD CELL COUNT(AUTO) 2.56 MIL/uL (4.5-6.0); RED CELL DISTRIBUTION WIDTH 20.6 % (11.5-15.0); WHITE BLOOD COUNT (AUTO) 8.8 K/uL (4.3-11.0)
[2024-07-19 05:42] LABS: ALBUMIN 2.2 g/dL (3.4-5.0); BILIRUBIN,TOTAL 1.1 mg/dL (0.2-1.0); CALCIUM, SERUM 9.3 mg/dL (8.5-10.1); CREATININE 2.7 mg/dL (0.6-1.3); MAGNESIUM 2.2 mg/dL (1.8-2.4); PHOSPHORUS 4.8 mg/dL (2.5-4.9); POTASSIUM 3.4 mmol/L (3.5-5.1); TOTAL PROTEIN, SERUM 6.2 g/dL (6.4-8.2)
[2024-07-19] MEDS: POTASSIUM CL. PREMIX PERIPHER. 50 ML IV SCH (10:08)
[2024-07-19] MEDS: HEPARIN SODIUM, PORCINE 5000 UNITS/1 ML VIAL SQ SCH (10:11)
[2024-07-19] MEDS: BUMETANIDE INJ 16 MG in IV NS 0.9% 16 ML IV ONE (10:25)
[2024-07-20] VITALS (37 sets, daily range): BP systolic 58–125; BP diastolic 36–92; TEMP 98–98.2; O2SAT 90–100
[2024-07-20] MEDS: HYDROCODONE/APAP 5/325MG TABLET PO PRN (02:46)
[2024-07-20 05:21] LABS: BASOPHILS % (AUTO) 0.1 % (0.0-2.0); EOSINOPHILS # (AUTO) 0.1 K/uL (0.0-0.7); EOSINOPHILS % (AUTO) 0.9 % (0.0-6.0); HEMATOCRIT 23 % (39-51); HEMOGLOBIN 7.8 g/dL (13.5-17.5); LYMPHOCYTES # (AUTO) 1.1 K/uL (0.8-4.8); LYMPHOCYTES % (AUTO) 15.4 % (20.0-44.0); MEAN CORPUSCULAR HEMOGLOBIN 31 PG (26.0-33.0); MEAN CORPUSCULAR HGB CONC 33 g/dl (31.0-36.0); MEAN CORPUSCULAR VOLUME 93 fL (80-96); MONOCYTES # (AUTO) 0.3 K/uL (0.1-1.30); MONOCYTES % (AUTO) 4.2 % (2.0-12.0); NEUTROPHILS # (AUTO) 5.8 K/uL (1.8-8.9); NEUTROPHILS % (AUTO) 79.4 % (43.0-81.0); PLATELET COUNT (AUTO) 137 K/uL (150-450); RED BLOOD CELL COUNT(AUTO) 2.52 MIL/uL (4.5-6.0); RED CELL DISTRIBUTION WIDTH 21.1 % (11.5-15.0); WHITE BLOOD COUNT (AUTO) 7.3 K/uL (4.3-11.0)
[2024-07-20 05:32] LABS: BILIRUBIN,TOTAL 1.3 mg/dL (0.2-1.0); CALCIUM, SERUM 8.6 mg/dL (8.5-10.1); CREATININE 2.6 mg/dL (0.6-1.3); MAGNESIUM 2.1 mg/dL (1.8-2.4); POTASSIUM 3.4 mmol/L (3.5-5.1); TOTAL PROTEIN, SERUM 6.2 g/dL (6.4-8.2)
[2024-07-20] MEDS: APIXABAN 2.5 MG TABLET PO SCH (09:00)
[2024-07-20] MEDS: ENSURE ENLIVE 237 ML LIQUID (VANILLA) PO SCH (17:41)
[2024-07-21] VITALS (26 sets, daily range): BP systolic 78–103; BP diastolic 54–76; TEMP 97.7–98.6; O2SAT 94–100
[2024-07-21 05:37] LABS: BASOPHILS % (AUTO) 0.2 % (0.0-2.0); EOSINOPHILS # (AUTO) 0.1 K/uL (0.0-0.7); EOSINOPHILS % (AUTO) 1.9 % (0.0-6.0); HEMATOCRIT 25 % (39-51); LYMPHOCYTES # (AUTO) 1.3 K/uL (0.8-4.8); LYMPHOCYTES % (AUTO) 22.1 % (20.0-44.0); MEAN CORPUSCULAR HEMOGLOBIN 30 PG (26.0-33.0); MEAN CORPUSCULAR HGB CONC 33 g/dl (31.0-36.0); MEAN CORPUSCULAR VOLUME 93 fL (80-96); MONOCYTES # (AUTO) 0.3 K/uL (0.1-1.30); MONOCYTES % (AUTO) 4.7 % (2.0-12.0); NEUTROPHILS # (AUTO) 4.1 K/uL (1.8-8.9); NEUTROPHILS % (AUTO) 71.1 % (43.0-81.0); PLATELET COUNT (AUTO) 136 K/uL (150-450); RED BLOOD CELL COUNT(AUTO) 2.64 MIL/uL (4.5-6.0); RED CELL DISTRIBUTION WIDTH 20.4 % (11.5-15.0); WHITE BLOOD COUNT (AUTO) 5.8 K/uL (4.3-11.0)
[2024-07-21 06:01] LABS: CALCIUM, SERUM 9.1 mg/dL (8.5-10.1); CREATININE 2.5 mg/dL (0.6-1.3); MAGNESIUM 2.2 mg/dL (1.8-2.4); PHOSPHORUS 4.1 mg/dL (2.5-4.9); POTASSIUM 3.4 mmol/L (3.5-5.1)
[2024-07-21] MEDS: POTASSIUM CL. PREMIX PERIPHER. 50 ML IV SCH (13:00)
[2024-07-21] MEDS: POTASSIUM CHLORIDE 20 MEQ POWDER PACKET GT ONE (18:48)
[2024-07-22] VITALS (24 sets, daily range): BP systolic 77–109; BP diastolic 58–79; TEMP 97.5–98.4; O2SAT 96–100
[2024-07-22 04:30] LABS: BASOPHILS % (AUTO) 0.3 % (0.0-2.0); EOSINOPHILS # (AUTO) 0.1 K/uL (0.0-0.7); EOSINOPHILS % (AUTO) 1.3 % (0.0-6.0); HEMATOCRIT 25 % (39-51); HEMOGLOBIN 8.4 g/dL (13.5-17.5); LYMPHOCYTES # (AUTO) 1.7 K/uL (0.8-4.8); LYMPHOCYTES % (AUTO) 29.2 % (20.0-44.0); MEAN CORPUSCULAR HEMOGLOBIN 31 PG (26.0-33.0); MEAN CORPUSCULAR HGB CONC 33 g/dl (31.0-36.0); MEAN CORPUSCULAR VOLUME 92 fL (80-96); MONOCYTES # (AUTO) 0.3 K/uL (0.1-1.30); MONOCYTES % (AUTO) 5.1 % (2.0-12.0); NEUTROPHILS # (AUTO) 3.7 K/uL (1.8-8.9); NEUTROPHILS % (AUTO) 64.1 % (43.0-81.0); PLATELET COUNT (AUTO) 161 K/uL (150-450); RED BLOOD CELL COUNT(AUTO) 2.76 MIL/uL (4.5-6.0); WHITE BLOOD COUNT (AUTO) 5.7 K/uL (4.3-11.0)
[2024-07-22 04:40] LABS: INR 1.2 (0.91-1.10); PROTHROMBIN TIME 12.6 SECS (9.2-11.1)
[2024-07-22 04:40] LABS: APPEARANCE,URINE CLOUDY (CLEAR); BILIRUBIN,URINE NEGATIVE (NEGATIVE); BLOOD, URINE 1+ Ery/uL (NEGATIVE); COLOR,URINE YELLOW (YELLOW); KETONES,URINE NEGATIVE (NEGATIVE); LEUKOCYTE ESTERASE ,URINE 2+ (NEGATIVE); NITRITE, URINE NEGATIVE (NEGATIVE); PROTEIN,URINE 2+ mg/dl (NEGATIVE); UGLUCOSE NEGATIVE (NEGATIVE); UROBILINOGEN,URINE 0.2 EU/dL (0.2)
[2024-07-22 04:41] LABS: CALCIUM, SERUM 9.1 mg/dL (8.5-10.1); CREATININE 2.5 mg/dL (0.6-1.3); POTASSIUM 3.4 mmol/L (3.5-5.1)
[2024-07-22 04:50] LABS: ADD URINE CULTURE YES; BACTERIA,URINE Moderate /HPF (None Seen); SQUAMOUS EPITHELIAL CELL,UR Few /HPF (None Seen); WBC,URINE 21-50 /HPF (0-3)
[2024-07-22] MEDS: POTASSIUM CHLORIDE 20 MEQ POWDER PACKET GT ONE (11:03)
[2024-07-22] MEDS: ONDANSETRON HCL/PF 4 MG/2 ML VIAL IVP PRN (17:33)
[2024-07-23] VITALS (17 sets, daily range): BP systolic 71–202; BP diastolic 54–100; TEMP 97.5–99; O2SAT 93–100
[2024-07-23 04:00] LABS: BASOPHILS % (AUTO) 0.2 % (0.0-2.0); EOSINOPHILS % (AUTO) 0.6 % (0.0-6.0); HEMATOCRIT 24 % (39-51); HEMOGLOBIN 8.1 g/dL (13.5-17.5); LYMPHOCYTES # (AUTO) 1.3 K/uL (0.8-4.8); LYMPHOCYTES % (AUTO) 24.9 % (20.0-44.0); MEAN CORPUSCULAR HEMOGLOBIN 31 PG (26.0-33.0); MEAN CORPUSCULAR HGB CONC 33 g/dl (31.0-36.0); MEAN CORPUSCULAR VOLUME 93 fL (80-96); MONOCYTES # (AUTO) 0.3 K/uL (0.1-1.30); MONOCYTES % (AUTO) 5.7 % (2.0-12.0); NEUTROPHILS # (AUTO) 3.7 K/uL (1.8-8.9); NEUTROPHILS % (AUTO) 68.6 % (43.0-81.0); PLATELET COUNT (AUTO) 167 K/uL (150-450); RED BLOOD CELL COUNT(AUTO) 2.63 MIL/uL (4.5-6.0); RED CELL DISTRIBUTION WIDTH 19.5 % (11.5-15.0); WHITE BLOOD COUNT (AUTO) 5.4 K/uL (4.3-11.0)
[2024-07-23 04:30] LABS: CALCIUM, SERUM 8.6 mg/dL (8.5-10.1); CREATININE 2.6 mg/dL (0.6-1.3); MAGNESIUM 2.2 mg/dL (1.8-2.4); PHOSPHORUS 3.8 mg/dL (2.5-4.9); POTASSIUM 3.8 mmol/L (3.5-5.1); TOTAL PROTEIN, SERUM 6.5 g/dL (6.4-8.2)
[2024-07-24] VITALS: BP 94/71; TEMP 96.1; O2SAT 91
[2024-07-24 04:00] VITALS: BP 90/70; TEMP 98.1; O2SAT 97
[2024-07-24 08:00] VITALS: BP 97/75; TEMP 97.9; O2SAT 99
[2024-07-24] MEDS: AMIODARONE HCL 200 MG TABLET PO SCH (08:54)
[2024-07-24 12:00] VITALS: BP 107/64; TEMP 97.7; O2SAT 99
[2024-07-24 16:00] VITALS: BP 111/63; TEMP 98; O2SAT 95
[2024-07-24 20:00] VITALS: BP 88/68; TEMP 97.4; O2SAT 98
[2024-07-25] VITALS: BP 90/64; TEMP 97.7; O2SAT 100
[2024-07-25 04:00] VITALS: BP 88/67; TEMP 97.7; O2SAT 96
[2024-07-25 07:54] LABS: INR 1.17 (0.91-1.10); PROTHROMBIN TIME 12.3 SECS (9.2-11.1)
[2024-07-25 08:00] VITALS: BP 136/63; TEMP 97.5; O2SAT 94
[2024-07-25 08:02] LABS: CALCIUM, SERUM 8.6 mg/dL (8.5-10.1); CREATININE 3.3 mg/dL (0.6-1.3); MAGNESIUM 2.3 mg/dL (1.8-2.4); PHOSPHORUS 5.2 mg/dL (2.5-4.9); POTASSIUM 3.9 mmol/L (3.5-5.1)
[2024-07-25 08:33] LABS: BASOPHILS % (AUTO) 0.3 % (0.0-2.0); EOSINOPHILS % (AUTO) 0.5 % (0.0-6.0); HEMATOCRIT 25 % (39-51); HEMOGLOBIN 8.3 g/dL (13.5-17.5); LYMPHOCYTES # (AUTO) 1.7 K/uL (0.8-4.8); LYMPHOCYTES % (AUTO) 20.7 % (20.0-44.0); MEAN CORPUSCULAR HEMOGLOBIN 30 PG (26.0-33.0); MEAN CORPUSCULAR HGB CONC 33 g/dl (31.0-36.0); MEAN CORPUSCULAR VOLUME 92 fL (80-96); MONOCYTES # (AUTO) 0.4 K/uL (0.1-1.30); MONOCYTES % (AUTO) 5.2 % (2.0-12.0); NEUTROPHILS # (AUTO) 6.1 K/uL (1.8-8.9); NEUTROPHILS % (AUTO) 73.3 % (43.0-81.0); PLATELET COUNT (AUTO) 228 K/uL (150-450); RED BLOOD CELL COUNT(AUTO) 2.72 MIL/uL (4.5-6.0); RED CELL DISTRIBUTION WIDTH 19.8 % (11.5-15.0); WHITE BLOOD COUNT (AUTO) 8.3 K/uL (4.3-11.0)
[2024-07-25] MEDS: IV NS 0.9% 500 ML IV ONE (09:46)
[2024-07-25] MEDS: IV NS 0.9% 1,000 ML IV PRN (11:44)
[2024-07-25 12:00] VITALS: BP 95/72; TEMP 97.7; O2SAT 97
[2024-07-25 16:00] VITALS: BP 92/76; TEMP 97.5; O2SAT 95
[2024-07-25 20:00] VITALS: BP 128/68; TEMP 97.5; O2SAT 95
[2024-07-26] VITALS (60 sets, daily range): BP systolic 77–137; BP diastolic 59–94; TEMP 97.1–98.2; O2SAT 76–100
[2024-07-26 07:17] LABS: BILIRUBIN,TOTAL 0.7 mg/dL (0.2-1.0); CALCIUM, SERUM 8.3 mg/dL (8.5-10.1); CREATININE 3.6 mg/dL (0.6-1.3); POTASSIUM 4.6 mmol/L (3.5-5.1); TOTAL PROTEIN, SERUM 6.6 g/dL (6.4-8.2)
[2024-07-26 09:49] LABS: ABG BASE EXCESS -7.1 mmol/L (-2.0-3.0); ABG OXYGEN SATURATION 89.1 % (94.0-98.0); ABG PCO2 28.3 mmHg (35.0-48.0); ABG PH 7.392 (7.350-7.450); ABG PO2 62.1 mmHg (83.0-108.0); ABG TOTAL HEMOGLOBIN 8.9 G/dL (13.5-17.5); COHb 0.4 % (0.5-1.5); MetHb 0.3 % (0.0-1.5); O2Hb 88.5 % (94.0-97.0); SITE, ABG RIGHT RADIAL
[2024-07-26] MEDS: PROPOFOL 100 ML IV PRN (10:57)
[2024-07-26 12:22] LABS: ABG BASE EXCESS -5.4 mmol/L (-2.0-3.0); ABG OXYGEN SATURATION 99.2 % (94.0-98.0); ABG PCO2 31.3 mmHg (35.0-48.0); ABG PH 7.396 (7.350-7.450); ABG PO2 277.1 mmHg (83.0-108.0); ABG TOTAL HEMOGLOBIN 8.5 G/dL (13.5-17.5); COHb 0.2 % (0.5-1.5); MetHb 0.9 % (0.0-1.5); O2Hb 98.1 % (94.0-97.0); PEEP,BG 8 cm H2O; SITE, ABG LEFT RADIAL; VT, ABG 450 mL
[2024-07-26] MEDS ORDERED: AMIODARONE HCL 200 MG TABLET GT SCH (12:57)
[2024-07-26] MEDS ORDERED: HYDROCODONE/APAP 5/325MG TABLET GT PRN (12:57)
[2024-07-26] MEDS ORDERED: MAGNESIUM HYDROXIDE 30 ML UDC GT PRN (12:58)
[2024-07-26] MEDS ORDERED: LORAZEPAM 0.5 MG TABLET GT PRN (12:58)
[2024-07-26] MEDS ORDERED: MIDODRINE HCL (5MG) 5 MG TABLET GT SCH (12:58)
[2024-07-26] MEDS ORDERED: PANTOPRAZOLE 40 MG/PACK PACK GT SCH (12:58)
[2024-07-26] MEDS ORDERED: MAG HYDROX/AL HYDROX/SIMETH 30 ML UDC GT PRN (12:58)
[2024-07-26] MEDS ORDERED: TAMSULOSIN 0.4 MG CAP.SR.24H GT SCH (12:59)
[2024-07-26] MEDS ORDERED: PHARMACY TO CHANGE PO MEDS TO GT/NG XX PRN (13:00)
[2024-07-26] MEDS ORDERED: MAG HYDROX/AL HYDROX/SIMETH 30 ML UDC NG PRN (13:33)
[2024-07-26] MEDS ORDERED: HYDROCODONE/APAP 5/325MG TABLET NG PRN (13:33)
[2024-07-26] MEDS ORDERED: MIDODRINE HCL (5MG) 5 MG TABLET NG SCH (13:34)
[2024-07-26] MEDS ORDERED: MAGNESIUM HYDROXIDE 30 ML UDC NG PRN (13:34)
[2024-07-26] MEDS: DOCUSATE SODIUM LIQ 100 MG/10 ML UDC NG SCH (16:40)
[2024-07-26] MEDS: NOREPINEPHRINE 8 MG in IV D5W 242 ML IV PRN (16:41)
[2024-07-26] MEDS: TAMSULOSIN 0.4 MG CAP.SR.24H NG SCH (21:17)
[2024-07-26] MEDS: MIDODRINE HCL (5MG) 5 MG TABLET NG SCH (21:17)
[2024-07-27] VITALS (81 sets, daily range): BP systolic 85–121; BP diastolic 67–86; TEMP 97.6–98.9; O2SAT 95–100
[2024-07-27 05:12] LABS: BASOPHILS % (AUTO) 0.4 % (0.0-2.0); EOSINOPHILS % (AUTO) 0.2 % (0.0-6.0); HEMATOCRIT 22 % (39-51); HEMOGLOBIN 7.3 g/dL (13.5-17.5); LYMPHOCYTES # (AUTO) 1.3 K/uL (0.8-4.8); LYMPHOCYTES % (AUTO) 14.6 % (20.0-44.0); MEAN CORPUSCULAR HEMOGLOBIN 30 PG (26.0-33.0); MEAN CORPUSCULAR HGB CONC 33 g/dl (31.0-36.0); MEAN CORPUSCULAR VOLUME 93 fL (80-96); MONOCYTES # (AUTO) 0.4 K/uL (0.1-1.30); MONOCYTES % (AUTO) 5.1 % (2.0-12.0); NEUTROPHILS % (AUTO) 79.7 % (43.0-81.0); PLATELET COUNT (AUTO) 249 K/uL (150-450); RED BLOOD CELL COUNT(AUTO) 2.39 MIL/uL (4.5-6.0); RED CELL DISTRIBUTION WIDTH 20.4 % (11.5-15.0); WHITE BLOOD COUNT (AUTO) 8.7 K/uL (4.3-11.0)
[2024-07-27 05:32] LABS: ALBUMIN 1.9 g/dL (3.4-5.0); BILIRUBIN,TOTAL 0.8 mg/dL (0.2-1.0); CALCIUM, SERUM 8.4 mg/dL (8.5-10.1); CREATININE 3.8 mg/dL (0.6-1.3); MAGNESIUM 2.5 mg/dL (1.8-2.4); PHOSPHORUS 5.8 mg/dL (2.5-4.9); POTASSIUM 4.3 mmol/L (3.5-5.1); TOTAL PROTEIN, SERUM 5.9 g/dL (6.4-8.2)
[2024-07-27] MEDS: PANTOPRAZOLE 40 MG/PACK PACK NG SCH (08:50)
[2024-07-27] MEDS: AMIODARONE HCL 200 MG TABLET NG SCH (08:50)
[2024-07-27] MEDS ORDERED: DUTASTERIDE (0.5 MG) 0.5 MG CAPSULE PO SCH (09:00)
[2024-07-27] MEDS: IV NS 0.9% 250 ML IV PRN (16:38)
[2024-07-28] VITALS (92 sets, daily range): BP systolic 84–117; BP diastolic 58–83; TEMP 97.9–99.2; O2SAT 93–100
[2024-07-28] MEDS: NEPRO 1,000 ML BOTTLE GT PRN ×2 (08:01→16:06)
[2024-07-28 09:20] LABS: BASOPHILS % (AUTO) 0.4 % (0.0-2.0); EOSINOPHILS % (AUTO) 0.3 % (0.0-6.0); HEMATOCRIT 26 % (39-51); HEMOGLOBIN 8.3 g/dL (13.5-17.5); LYMPHOCYTES # (AUTO) 1.4 K/uL (0.8-4.8); LYMPHOCYTES % (AUTO) 17.6 % (20.0-44.0); MEAN CORPUSCULAR HEMOGLOBIN 30 PG (26.0-33.0); MEAN CORPUSCULAR HGB CONC 32 g/dl (31.0-36.0); MEAN CORPUSCULAR VOLUME 93 fL (80-96); MONOCYTES # (AUTO) 0.5 K/uL (0.1-1.30); MONOCYTES % (AUTO) 6.3 % (2.0-12.0); NEUTROPHILS # (AUTO) 6.1 K/uL (1.8-8.9); NEUTROPHILS % (AUTO) 75.4 % (43.0-81.0); PLATELET COUNT (AUTO) 266 K/uL (150-450); RED BLOOD CELL COUNT(AUTO) 2.77 MIL/uL (4.5-6.0); RED CELL DISTRIBUTION WIDTH 20.8 % (11.5-15.0); WHITE BLOOD COUNT (AUTO) 8.1 K/uL (4.3-11.0)
[2024-07-28 09:32] LABS: CALCIUM, SERUM 8.1 mg/dL (8.5-10.1); CREATININE 2.3 mg/dL (0.6-1.3); POTASSIUM 3.3 mmol/L (3.5-5.1)
[2024-07-29] VITALS (94 sets, daily range): BP systolic 82–126; BP diastolic 60–84; TEMP 98.3–102; O2SAT 97–100
[2024-07-29 04:50] LABS: BASOPHILS # (AUTO) 0.1 K/uL (0.0-0.2); BASOPHILS % (AUTO) 0.4 % (0.0-2.0); EOSINOPHILS % (AUTO) 0.1 % (0.0-6.0); HEMATOCRIT 28 % (39-51); HEMOGLOBIN 9.1 g/dL (13.5-17.5); LYMPHOCYTES # (AUTO) 1.4 K/uL (0.8-4.8); LYMPHOCYTES % (AUTO) 10.3 % (20.0-44.0); MEAN CORPUSCULAR HEMOGLOBIN 30 PG (26.0-33.0); MEAN CORPUSCULAR HGB CONC 32 g/dl (31.0-36.0); MEAN CORPUSCULAR VOLUME 93 fL (80-96); MONOCYTES # (AUTO) 0.9 K/uL (0.1-1.30); MONOCYTES % (AUTO) 6.7 % (2.0-12.0); NEUTROPHILS # (AUTO) 11.4 K/uL (1.8-8.9); NEUTROPHILS % (AUTO) 82.5 % (43.0-81.0); PLATELET COUNT (AUTO) 229 K/uL (150-450); RED BLOOD CELL COUNT(AUTO) 3.04 MIL/uL (4.5-6.0); RED CELL DISTRIBUTION WIDTH 20.1 % (11.5-15.0); WHITE BLOOD COUNT (AUTO) 13.8 K/uL (4.3-11.0)
[2024-07-29 05:11] LABS: CALCIUM, SERUM 8.1 mg/dL (8.5-10.1); MAGNESIUM 2.2 mg/dL (1.8-2.4); PHOSPHORUS 4.1 mg/dL (2.5-4.9); POTASSIUM 3.6 mmol/L (3.5-5.1)
[2024-07-29] MEDS ORDERED: VANCOMYCIN IJ ONE (19:30)
[2024-07-29] MEDS ORDERED: HEPARIN 10 UNIT/ML IJ ONE (19:30)
[2024-07-29] MEDS ORDERED: ACETAMINOPHEN 325 MG TABLET PO PRN (19:30)
[2024-07-29] MEDS ORDERED: CEFEPIME 1 GM VIAL IM SCH (21:00)
[2024-07-29] MEDS: VANCOMYCIN 1 GM in IV D5W 250 ML IV ONE (22:29)
[2024-07-29] MEDS: ACETAMINOPHEN 650 MG/20.3 ML UDC NG PRN (22:30)
[2024-07-29] MEDS: CEFEPIME 1 GM in IV D5W 50 ML IV SCH (23:49)
[2024-07-30] VITALS (93 sets, daily range): BP systolic 70–111; BP diastolic 42–83; TEMP 97.9–101.3; O2SAT 99–100
[2024-07-30 00:11] LABS: APPEARANCE,URINE SLIGHTLY CLOUDY (CLEAR); BILIRUBIN,URINE 1+ (NEGATIVE); BLOOD, URINE NEGATIVE Ery/uL (NEGATIVE); COLOR,URINE YELLOW (YELLOW); KETONES,URINE NEGATIVE (NEGATIVE); LEUKOCYTE ESTERASE ,URINE 3+ (NEGATIVE); NITRITE, URINE NEGATIVE (NEGATIVE); PROTEIN,URINE 3+ mg/dl (NEGATIVE); UGLUCOSE NEGATIVE (NEGATIVE)
[2024-07-30 00:18] LABS: ADD URINE CULTURE YES; BACTERIA,URINE Moderate /HPF (None Seen); SQUAMOUS EPITHELIAL CELL,UR Rare /HPF (None Seen)
[2024-07-30 00:19] LABS: WBC,URINE 21-50 /HPF (0-3)
[2024-07-30 04:36] LABS: BASOPHILS # (AUTO) 0.1 K/uL (0.0-0.2); BASOPHILS % (AUTO) 0.9 % (0.0-2.0); EOSINOPHILS % (AUTO) 0.2 % (0.0-6.0); HEMATOCRIT 26 % (39-51); HEMOGLOBIN 8.4 g/dL (13.5-17.5); LYMPHOCYTES # (AUTO) 1.8 K/uL (0.8-4.8); LYMPHOCYTES % (AUTO) 16.3 % (20.0-44.0); MEAN CORPUSCULAR HEMOGLOBIN 30 PG (26.0-33.0); MEAN CORPUSCULAR HGB CONC 33 g/dl (31.0-36.0); MEAN CORPUSCULAR VOLUME 91 fL (80-96); MONOCYTES # (AUTO) 0.8 K/uL (0.1-1.30); MONOCYTES % (AUTO) 7.1 % (2.0-12.0); NEUTROPHILS # (AUTO) 8.1 K/uL (1.8-8.9); NEUTROPHILS % (AUTO) 75.5 % (43.0-81.0); PLATELET COUNT (AUTO) 190 K/uL (150-450); RED BLOOD CELL COUNT(AUTO) 2.81 MIL/uL (4.5-6.0); RED CELL DISTRIBUTION WIDTH 19.9 % (11.5-15.0); WHITE BLOOD COUNT (AUTO) 10.8 K/uL (4.3-11.0)
[2024-07-30 04:56] LABS: CALCIUM, SERUM 7.6 mg/dL (8.5-10.1); CREATININE 1.7 mg/dL (0.6-1.3); PHOSPHORUS 3.4 mg/dL (2.5-4.9)
[2024-07-30 05:11] LABS: POTASSIUM 2.7 mmol/L (3.5-5.1)
[2024-07-30] MEDS: POTASSIUM CL. PREMIX PERIPHER. 50 ML IV SCH (06:49)
[2024-07-30 08:07] LABS: HEPATITIS B SURFACE AB Non Reactive (.)
[2024-07-30 15:00] LABS: CALCIUM, SERUM 7.8 mg/dL (8.5-10.1); CREATININE 1.8 mg/dL (0.6-1.3); POTASSIUM 3.9 mmol/L (3.5-5.1)
[2024-07-31] VITALS (70 sets, daily range): BP systolic 82–109; BP diastolic 55–73; TEMP 97.2–98; O2SAT 97–100
[2024-07-31 06:21] LABS: BASOPHILS # (AUTO) 0.1 K/uL (0.0-0.2); BASOPHILS % (AUTO) 0.7 % (0.0-2.0); EOSINOPHILS % (AUTO) 0.4 % (0.0-6.0); HEMATOCRIT 24 % (39-51); HEMOGLOBIN 7.8 g/dL (13.5-17.5); LYMPHOCYTES # (AUTO) 1.6 K/uL (0.8-4.8); LYMPHOCYTES % (AUTO) 12.4 % (20.0-44.0); MEAN CORPUSCULAR HEMOGLOBIN 30 PG (26.0-33.0); MEAN CORPUSCULAR HGB CONC 32 g/dl (31.0-36.0); MEAN CORPUSCULAR VOLUME 93 fL (80-96); MONOCYTES # (AUTO) 0.9 K/uL (0.1-1.30); MONOCYTES % (AUTO) 7.5 % (2.0-12.0); PLATELET COUNT (AUTO) 185 K/uL (150-450); RED BLOOD CELL COUNT(AUTO) 2.63 MIL/uL (4.5-6.0); RED CELL DISTRIBUTION WIDTH 20.2 % (11.5-15.0); WHITE BLOOD COUNT (AUTO) 12.6 K/uL (4.3-11.0)
[2024-07-31 06:32] LABS: CALCIUM, SERUM 7.9 mg/dL (8.5-10.1); CREATININE 1.8 mg/dL (0.6-1.3); MAGNESIUM 1.9 mg/dL (1.8-2.4); PHOSPHORUS 3.4 mg/dL (2.5-4.9)
[2024-07-31] MEDS ORDERED: IV NS 0.9% 1,000 ML ONE (10:57)
[2024-07-31] MEDS ORDERED: IV SET PRIMARY PUMP SET 1 EA INFUS.SET MC ONE (10:57)
[2024-07-31] MEDS ORDERED: LIDOCAINE HCL/MPF 1% 30 ML VIAL IJ ONE ×2 (10:57→15:31)
[2024-07-31] MEDS ORDERED: IODIXANOL 150 ML IV ONE ×3 (10:57→16:05)
[2024-07-31] MEDS ORDERED: IODIXANOL 320MG/ML 100 ML IV ONE (12:24)
[2024-07-31] MEDS: HEPARIN SODIUM, PORCINE 5000 UNITS/1 ML VIAL IV ONE (14:40)
[2024-07-31] MEDS ORDERED: HEPARIN INFUSION/D5W 500 ML IV PRN (15:30)
[2024-07-31] MEDS ORDERED: IODIXANOL 320MG/ML 50 ML IV ONE (16:26)
[2024-07-31] MEDS: PROSOURCE / PROSTAT (PYXIS) 30 ML UDC GT SCH (18:36)
[2024-07-31] MEDS: CLOPIDOGREL BISULFATE 300 MG TABLET NG ONE (19:32)
[2024-07-31] MEDS: HEPARIN SODIUM, PORCINE 1000 UNIT/1 ML VIAL IV ONE (19:46)
[2024-07-31] MEDS: VANCOMYCIN POST DIALYSIS 500MG IV PRN (21:46)
[2024-08-01] VITALS (93 sets, daily range): BP systolic 84–107; BP diastolic 54–72; TEMP 97.9–99.4; O2SAT 91–100
[2024-08-01 04:44] LABS: BASOPHILS # (AUTO) 0.1 K/uL (0.0-0.2); BASOPHILS % (AUTO) 0.9 % (0.0-2.0); EOSINOPHILS % (AUTO) 0.4 % (0.0-6.0); HEMATOCRIT 22 % (39-51); HEMOGLOBIN 7.1 g/dL (13.5-17.5); LYMPHOCYTES # (AUTO) 1.3 K/uL (0.8-4.8); MEAN CORPUSCULAR HEMOGLOBIN 30 PG (26.0-33.0); MEAN CORPUSCULAR HGB CONC 33 g/dl (31.0-36.0); MEAN CORPUSCULAR VOLUME 91 fL (80-96); MONOCYTES # (AUTO) 0.8 K/uL (0.1-1.30); MONOCYTES % (AUTO) 8.2 % (2.0-12.0); NEUTROPHILS # (AUTO) 7.1 K/uL (1.8-8.9); NEUTROPHILS % (AUTO) 76.5 % (43.0-81.0); PLATELET COUNT (AUTO) 144 K/uL (150-450); RED BLOOD CELL COUNT(AUTO) 2.36 MIL/uL (4.5-6.0); RED CELL DISTRIBUTION WIDTH 19.6 % (11.5-15.0); WHITE BLOOD COUNT (AUTO) 9.3 K/uL (4.3-11.0)
[2024-08-01 04:55] LABS: CALCIUM, SERUM 7.9 mg/dL (8.5-10.1); CREATININE 1.2 mg/dL (0.6-1.3); MAGNESIUM 1.9 mg/dL (1.8-2.4); PHOSPHORUS 2.5 mg/dL (2.5-4.9); POTASSIUM 3.3 mmol/L (3.5-5.1)
[2024-08-01] MEDS: CLOPIDOGREL BISULFATE 75 MG TABLET NG SCH (08:35)
[2024-08-01] MEDS ORDERED: ETOMIDATE 2 MG/ML VIAL IV ONE (09:26)
[2024-08-01] MEDS: POTASSIUM CHLORIDE 20 MEQ POWDER PACKET NG SCH (10:00)
[2024-08-01] MEDS: POTASSIUM CHLORIDE 20 MEQ POWDER PACKET GT ONE (19:20)
[2024-08-02] VITALS (92 sets, daily range): BP systolic 88–138; BP diastolic 46–84; TEMP 97.9–98.7; O2SAT 91–100
[2024-08-02 04:56] LABS: CALCIUM, SERUM 7.8 mg/dL (8.5-10.1); CREATININE 1.6 mg/dL (0.6-1.3); MAGNESIUM 1.9 mg/dL (1.8-2.4); PHOSPHORUS 2.3 mg/dL (2.5-4.9)
[2024-08-02 05:09] LABS: BASOPHILS # (AUTO) 0.1 K/uL (0.0-0.2); BASOPHILS % (AUTO) 0.6 % (0.0-2.0); EOSINOPHILS # (AUTO) 0.1 K/uL (0.0-0.7); EOSINOPHILS % (AUTO) 0.6 % (0.0-6.0); HEMATOCRIT 21 % (39-51); LYMPHOCYTES # (AUTO) 1.4 K/uL (0.8-4.8); LYMPHOCYTES % (AUTO) 10.9 % (20.0-44.0); MEAN CORPUSCULAR HEMOGLOBIN 29 PG (26.0-33.0); MEAN CORPUSCULAR HGB CONC 31 g/dl (31.0-36.0); MEAN CORPUSCULAR VOLUME 92 fL (80-96); MONOCYTES % (AUTO) 7.8 % (2.0-12.0); NEUTROPHILS % (AUTO) 80.1 % (43.0-81.0); PLATELET COUNT (AUTO) 163 K/uL (150-450); RED BLOOD CELL COUNT(AUTO) 2.32 MIL/uL (4.5-6.0); RED CELL DISTRIBUTION WIDTH 19.9 % (11.5-15.0); WHITE BLOOD COUNT (AUTO) 12.4 K/uL (4.3-11.0)
[2024-08-02 05:26] LABS: HEMOGLOBIN 6.6 g/dL (13.5-17.5)
[2024-08-02 06:17] LABS: ANISOCYTOSIS 1+; BASOPHILS % (MANUAL) 0 % (0.0-2.0); EOSINOPHILS % (MANUAL) 0 % (0-4); LYMPHOCYTES % (MANUAL) 11 % (16-48); MONOCYTES % (MANUAL) 7 % (0-11.0); NEUTROPHILS % (MANUAL) 82 (42-76); PLATELET ESTIMATE ADEQUATE
[2024-08-02] MEDS: THERAHONEY GEL 1.5 OZ TUBE TP SCH (08:42)
[2024-08-02] MEDS: PRECEDEX 400 MCG/100 ML BOTTLE 100 ML IV SCH (10:06)
[2024-08-02] MEDS: MEROPENEM 1 G in IV NS 0.9% 100 ML IV SCH (15:24)
[2024-08-02] MEDS: NEUTRA PHOS 1 POWD.PACKET NG ONE (15:28)
[2024-08-02] MEDS: ALTEPLASE CATHFLO 2 MG/VIAL IV ONE (16:12)
[2024-08-02 20:33] LABS: HEMOGLOBIN 8.6 g/dL (13.5-17.5)
[2024-08-03] VITALS (63 sets, daily range): BP systolic 74–114; BP diastolic 50–81; TEMP 97.7–98.8; O2SAT 96–100
[2024-08-03 04:29] LABS: BASOPHILS # (AUTO) 0.1 K/uL (0.0-0.2); BASOPHILS % (AUTO) 0.7 % (0.0-2.0); EOSINOPHILS % (AUTO) 0.3 % (0.0-6.0); HEMATOCRIT 24 % (39-51); HEMOGLOBIN 7.7 g/dL (13.5-17.5); LYMPHOCYTES # (AUTO) 1.7 K/uL (0.8-4.8); LYMPHOCYTES % (AUTO) 14.5 % (20.0-44.0); MEAN CORPUSCULAR HEMOGLOBIN 30 PG (26.0-33.0); MEAN CORPUSCULAR HGB CONC 33 g/dl (31.0-36.0); MEAN CORPUSCULAR VOLUME 91 fL (80-96); MONOCYTES % (AUTO) 8.7 % (2.0-12.0); NEUTROPHILS # (AUTO) 8.9 K/uL (1.8-8.9); NEUTROPHILS % (AUTO) 75.8 % (43.0-81.0); PLATELET COUNT (AUTO) 129 K/uL (150-450); RED BLOOD CELL COUNT(AUTO) 2.58 MIL/uL (4.5-6.0); RED CELL DISTRIBUTION WIDTH 18.5 % (11.5-15.0); WHITE BLOOD COUNT (AUTO) 11.7 K/uL (4.3-11.0)
[2024-08-03 04:38] LABS: BILIRUBIN,TOTAL 0.9 mg/dL (0.2-1.0); CALCIUM, SERUM 7.8 mg/dL (8.5-10.1); CREATININE 1.3 mg/dL (0.6-1.3); MAGNESIUM 1.9 mg/dL (1.8-2.4); PHOSPHORUS 2.2 mg/dL (2.5-4.9); POTASSIUM 3.9 mmol/L (3.5-5.1); TOTAL PROTEIN, SERUM 5.8 g/dL (6.4-8.2)
[2024-08-03 05:01] LABS: ALBUMIN 1.4 g/dL (3.4-5.0)
[2024-08-03] MEDS ORDERED: NEUTRA PHOS 1 POWD.PACKET PO ONE (16:00)
[2024-08-03] MEDS: NEUTRA PHOS 1 POWD.PACKET NG ONE (17:18)
[2024-08-04] VITALS (87 sets, daily range): BP systolic 78–117; BP diastolic 58–93; TEMP 98; O2SAT 94–100
[2024-08-04 04:49] LABS: BASOPHILS # (AUTO) 0.1 K/uL (0.0-0.2); BASOPHILS % (AUTO) 1.1 % (0.0-2.0); EOSINOPHILS % (AUTO) 0.4 % (0.0-6.0); HEMATOCRIT 26 % (39-51); HEMOGLOBIN 8.5 g/dL (13.5-17.5); LYMPHOCYTES # (AUTO) 1.8 K/uL (0.8-4.8); LYMPHOCYTES % (AUTO) 16.1 % (20.0-44.0); MEAN CORPUSCULAR HEMOGLOBIN 30 PG (26.0-33.0); MEAN CORPUSCULAR HGB CONC 33 g/dl (31.0-36.0); MEAN CORPUSCULAR VOLUME 91 fL (80-96); MONOCYTES % (AUTO) 8.5 % (2.0-12.0); NEUTROPHILS # (AUTO) 8.4 K/uL (1.8-8.9); NEUTROPHILS % (AUTO) 73.9 % (43.0-81.0); PLATELET COUNT (AUTO) 142 K/uL (150-450); RED BLOOD CELL COUNT(AUTO) 2.85 MIL/uL (4.5-6.0); RED CELL DISTRIBUTION WIDTH 18.1 % (11.5-15.0); WHITE BLOOD COUNT (AUTO) 11.4 K/uL (4.3-11.0)
[2024-08-04 06:12] LABS: CALCIUM, SERUM 8.3 mg/dL (8.5-10.1); CREATININE 1.6 mg/dL (0.6-1.3); MAGNESIUM 2.1 mg/dL (1.8-2.4); PHOSPHORUS 2.7 mg/dL (2.5-4.9); POTASSIUM 3.5 mmol/L (3.5-5.1)
[2024-08-04] MEDS: Z GUARD REMEDY 4 OZ OINT TP PRN (09:12)
[2024-08-04] MEDS: METOCLOPRAMIDE HCL 10 MG/2 ML VIAL IV SCH (09:16)
[2024-08-04] MEDS: APIXABAN 2.5 MG TABLET PO SCH (16:55)
[2024-08-05] VITALS (97 sets, daily range): BP systolic 76–143; BP diastolic 61–109; TEMP 98–98.3; O2SAT 95–100
[2024-08-05 04:24] LABS: BASOPHILS # (AUTO) 0.1 K/uL (0.0-0.2); BASOPHILS % (AUTO) 0.7 % (0.0-2.0); EOSINOPHILS # (AUTO) 0.1 K/uL (0.0-0.7); EOSINOPHILS % (AUTO) 0.6 % (0.0-6.0); HEMATOCRIT 25 % (39-51); HEMOGLOBIN 8.5 g/dL (13.5-17.5); LYMPHOCYTES # (AUTO) 2.4 K/uL (0.8-4.8); LYMPHOCYTES % (AUTO) 21.4 % (20.0-44.0); MEAN CORPUSCULAR HEMOGLOBIN 31 PG (26.0-33.0); MEAN CORPUSCULAR HGB CONC 34 g/dl (31.0-36.0); MEAN CORPUSCULAR VOLUME 91 fL (80-96); MONOCYTES # (AUTO) 0.8 K/uL (0.1-1.30); MONOCYTES % (AUTO) 7.5 % (2.0-12.0); NEUTROPHILS # (AUTO) 7.9 K/uL (1.8-8.9); NEUTROPHILS % (AUTO) 69.8 % (43.0-81.0); PLATELET COUNT (AUTO) 166 K/uL (150-450); RED BLOOD CELL COUNT(AUTO) 2.77 MIL/uL (4.5-6.0); RED CELL DISTRIBUTION WIDTH 17.5 % (11.5-15.0); WHITE BLOOD COUNT (AUTO) 11.3 K/uL (4.3-11.0)
[2024-08-05 04:34] LABS: CALCIUM, SERUM 8.4 mg/dL (8.5-10.1); CREATININE 1.7 mg/dL (0.6-1.3); MAGNESIUM 2.3 mg/dL (1.8-2.4); PHOSPHORUS 3.1 mg/dL (2.5-4.9); POTASSIUM 3.5 mmol/L (3.5-5.1)
[2024-08-05] MEDS ORDERED: ALBUMIN 25% 25 GM in PREMIX 1 EA IV PRN (20:00)
[2024-08-05] MEDS ORDERED: ALBUMIN 25% 50 GM in PREMIX 1 EA IV ONE (20:00)
[2024-08-05] MEDS: LORAZEPAM 0.5 MG TABLET NG PRN (23:26)
[2024-08-06] VITALS (68 sets, daily range): BP systolic 83–114; BP diastolic 64–87; TEMP 97.7–98.6; O2SAT 90–100
[2024-08-06 05:32] LABS: BASOPHILS % (AUTO) 0.4 % (0.0-2.0); EOSINOPHILS % (AUTO) 0.2 % (0.0-6.0); HEMATOCRIT 27 % (39-51); HEMOGLOBIN 8.6 g/dL (13.5-17.5); LYMPHOCYTES # (AUTO) 1.7 K/uL (0.8-4.8); LYMPHOCYTES % (AUTO) 15.4 % (20.0-44.0); MEAN CORPUSCULAR HEMOGLOBIN 30 PG (26.0-33.0); MEAN CORPUSCULAR HGB CONC 33 g/dl (31.0-36.0); MEAN CORPUSCULAR VOLUME 92 fL (80-96); MONOCYTES # (AUTO) 0.7 K/uL (0.1-1.30); MONOCYTES % (AUTO) 6.7 % (2.0-12.0); NEUTROPHILS # (AUTO) 8.6 K/uL (1.8-8.9); NEUTROPHILS % (AUTO) 77.3 % (43.0-81.0); PLATELET COUNT (AUTO) 189 K/uL (150-450); RED BLOOD CELL COUNT(AUTO) 2.89 MIL/uL (4.5-6.0); RED CELL DISTRIBUTION WIDTH 17.6 % (11.5-15.0); WHITE BLOOD COUNT (AUTO) 11.1 K/uL (4.3-11.0)
[2024-08-06 05:40] LABS: CALCIUM, SERUM 7.7 mg/dL (8.5-10.1); CREATININE 1.4 mg/dL (0.6-1.3); MAGNESIUM 1.9 mg/dL (1.8-2.4); PHOSPHORUS 3.4 mg/dL (2.5-4.9); POTASSIUM 3.4 mmol/L (3.5-5.1)
[2024-08-06] MEDS: HYDROCORTISONE SOD SUCCINATE 100 MG/2 ML VIAL IV SCH (09:05)
[2024-08-06] MEDS: POTASSIUM CL. PREMIX PERIPHER. 50 ML IV SCH (15:51)
[2024-08-07] VITALS (65 sets, daily range): BP systolic 85–131; BP diastolic 61–105; TEMP 98–98.8; O2SAT 87–100
[2024-08-07] MEDS: CLOPIDOGREL BISULFATE 75 MG TABLET PO SCH (09:23)
[2024-08-08] VITALS (61 sets, daily range): BP systolic 82–111; BP diastolic 61–94; TEMP 97.3–98.8; O2SAT 94–100
[2024-08-08 12:40] LABS: BASOPHILS % (AUTO) 0.1 % (0.0-2.0); HEMATOCRIT 30 % (39-51); HEMOGLOBIN 9.7 g/dL (13.5-17.5); LYMPHOCYTES # (AUTO) 2.2 K/uL (0.8-4.8); LYMPHOCYTES % (AUTO) 14.8 % (20.0-44.0); MEAN CORPUSCULAR HEMOGLOBIN 30 PG (26.0-33.0); MEAN CORPUSCULAR HGB CONC 32 g/dl (31.0-36.0); MEAN CORPUSCULAR VOLUME 92 fL (80-96); MONOCYTES # (AUTO) 0.9 K/uL (0.1-1.30); MONOCYTES % (AUTO) 6.2 % (2.0-12.0); NEUTROPHILS # (AUTO) 11.8 K/uL (1.8-8.9); NEUTROPHILS % (AUTO) 78.9 % (43.0-81.0); PLATELET COUNT (AUTO) 206 K/uL (150-450); RED BLOOD CELL COUNT(AUTO) 3.27 MIL/uL (4.5-6.0); RED CELL DISTRIBUTION WIDTH 17.7 % (11.5-15.0); WHITE BLOOD COUNT (AUTO) 14.9 K/uL (4.3-11.0)
[2024-08-08 12:43] LABS: CALCIUM, SERUM 8.7 mg/dL (8.5-10.1); CREATININE 0.7 mg/dL (0.6-1.3)
[2024-08-08 12:49] LABS: MAGNESIUM 2.1 mg/dL (1.8-2.4); PHOSPHORUS 1.6 mg/dL (2.5-4.9)
[2024-08-08] MEDS ORDERED: POTASSIUM PHOSPHATE MM 15 MMOL in IV NS 0.9% 250 ML IV SCH (17:00)
[2024-08-08] MEDS: NEUTRA PHOS 1 POWD.PACKET PO ONE (17:54)
[2024-08-08] MEDS: POTASSIUM PHOSPHATE MM 7.5 MMOL in IV NS 0.9% 100 ML IV SCH (17:54)
[2024-08-08] MEDS: POTASSIUM CHLORIDE 20 MEQ POWDER PACKET GT ONE (17:54)
[2024-08-09] VITALS (113 sets, daily range): BP systolic 60–115; BP diastolic 51–95; TEMP 97.5–98.5; O2SAT 96–100
[2024-08-09] MEDS: PHENYLEPHRINE 50 MG in IV NS 0.9% 245 ML IV PRN (13:12)
[2024-08-09] MEDS: AMIODARONE 150 MG in IV D5W 100 ML IV ONE (15:29)
[2024-08-09] MEDS: AMIODARONE 450 MG in IV D5W 241 ML IV PRN (15:43)
[2024-08-09] MEDS: PHENYLEPHRINE 100 MG in IV NS 0.9% 240 ML IV PRN (16:52)
[2024-08-09 17:42] LABS: ABG BASE EXCESS -2.5 mmol/L (-2.0-3.0); ABG OXYGEN SATURATION 95.8 % (94.0-98.0); ABG PCO2 29.4 mmHg (35.0-48.0); ABG PH 7.463 (7.350-7.450); ABG TOTAL HEMOGLOBIN 9.6 G/dL (13.5-17.5); COHb 0.3 % (0.5-1.5); MetHb 0.1 % (0.0-1.5); O2Hb 95.4 % (94.0-97.0); PEEP,BG 0 cm H2O; SITE, ABG RIGHT RADIAL; VT, ABG 450 mL
[2024-08-09] MEDS: IV NS 0.9% 500 ML BAG IV ONE (17:58)
[2024-08-09] MEDS: IV NS 0.9% 500 ML IV ONE (18:35)
[2024-08-09] MEDS: DOBUTamine 500 MG in IV D5W 210 ML IV PRN (19:08)
[2024-08-10] VITALS (10 sets, daily range): BP systolic 89–101; BP diastolic 66–75; TEMP 98.7; O2SAT 100
== END 2024-08-10 02:42 | disposition short-term general hospital (02) | DRG 182 ==
LOC: ER 11:13 → TELE 17:47 → TELE-TD 07-09 01:38 → ICU 07-09 06:36 → TELE1 07-10 11:34 → ICU 07-17 18:19 → TELE1 07-23 13:19 → ICU 07-26 08:00
PROVIDERS: ADMIT Internal Medicine; ATTEND Internal Medicine
PROC: 5A09457 Assistance with Respiratory Ventilation, 24-96 Consecutive Hours, Continuous Positive Airway Pressure (ICD-10-PCS; 2024-07-18)
PROC: 5A1955Z Respiratory Ventilation, Greater than 96 Consecutive Hours (ICD-10-PCS; principal; 2024-07-26)
PROC: 0BH17EZ Insertion of Endotracheal Airway into Trachea, Via Natural or Artificial Opening (ICD-10-PCS; 2024-07-26)
PROC: 06HY33Z Insertion of Infusion Device into Lower Vein, Percutaneous Approach (ICD-10-PCS; 2024-07-27)
PROC: 5A1D70Z Performance of Urinary Filtration, Intermittent, Less than 6 Hours Per Day (ICD-10-PCS; 2024-07-27)
PROC: 047L3DZ Dilation of Left Femoral Artery with Intraluminal Device, Percutaneous Approach (ICD-10-PCS; 2024-07-31)
PROC: 4A023N7 Measurement of Cardiac Sampling and Pressure, Left Heart, Percutaneous Approach (ICD-10-PCS; 2024-07-31)
PROC: B44GZZZ Ultrasonography of Left Lower Extremity Arteries (ICD-10-PCS; 2024-07-31)
PROC: B215YZZ Fluoroscopy of Left Heart using Other Contrast (ICD-10-PCS; 2024-07-31)
PROC: B211YZZ Fluoroscopy of Multiple Coronary Arteries using Other Contrast (ICD-10-PCS; 2024-07-31)
PROC: B410YZZ Fluoroscopy of Abdominal Aorta using Other Contrast (ICD-10-PCS; 2024-07-31)
PROC: B41FYZZ Fluoroscopy of Right Lower Extremity Arteries using Other Contrast (ICD-10-PCS; 2024-07-31)
PROC: 30233N1 Transfusion of Nonautologous Red Blood Cells into Peripheral Vein, Percutaneous Approach (ICD-10-PCS; 2024-08-02)
PROC: 5A2204Z Restoration of Cardiac Rhythm, Single (ICD-10-PCS; 2024-08-09)
DX: I13.0 Hypertensive heart and chronic kidney disease with heart failure and stage 1 through stage 4 chronic kidney disease, or unspecified chronic kidney disease (principal); J96.01 Acute respiratory failure with hypoxia; N17.0 Acute kidney failure with tubular necrosis; G92.8 Other toxic encephalopathy; I33.0 Acute and subacute infective endocarditis; L89.146 Pressure-induced deep tissue damage of left lower back; I21.A1 Myocardial infarction type 2; I27.20 Pulmonary hypertension, unspecified; E83.9 Disorder of mineral metabolism, unspecified; L89.626 Pressure-induced deep tissue damage of left heel; E87.20 Acidosis, unspecified; L89.156 Pressure-induced deep tissue damage of sacral region; I27.29 Other secondary pulmonary hypertension; I50.33 Acute on chronic diastolic (congestive) heart failure; E87.1 Hypo-osmolality and hyponatremia; D64.9 Anemia, unspecified; E83.42 Hypomagnesemia; E87.6 Hypokalemia; F41.9 Anxiety disorder, unspecified; I48.0 Paroxysmal atrial fibrillation; K21.9 Gastro-esophageal reflux disease without esophagitis; R13.10 Dysphagia, unspecified; Z86.73 Personal history of transient ischemic attack (TIA), and cerebral infarction without residual deficits; Z87.01 Personal history of pneumonia (recurrent); Z86.79 Personal history of other diseases of the circulatory system; Z79.01 Long term (current) use of anticoagulants; N18.4 Chronic kidney disease, stage 4 (severe); J84.9 Interstitial pulmonary disease, unspecified; I34.0 Nonrheumatic mitral (valve) insufficiency; I77.1 Stricture of artery; I73.9 Peripheral vascular disease, unspecified; L98.8 Other specified disorders of the skin and subcutaneous tissue; S61.511A Laceration without foreign body of right wrist, initial encounter; X58.XXXA Exposure to other specified factors, initial encounter; Y93.9 Activity, unspecified; Y92.129 Unspecified place in nursing home as the place of occurrence of the external cause; I95.1 Orthostatic hypotension; N40.0 Benign prostatic hyperplasia without lower urinary tract symptoms; N13.30 Unspecified hydronephrosis
CPT/HCPCS: 31720; 36246; 36415; 36600; 37226; 71045-TC; 71250-TC; 74018; 75625; 75710-TC; 76604-TC; 76770-TC; 78582; 80048-TC; 80053-TC; 80202-TC; 81001; 82247-TC; 82248-TC; 82533; 82550-TC; 82570-TC; 82803-TC; 82962-TC; 83605-TC; 83735-TC; 83880; 83970; 84100-TC; 84155; 84165; 84300-TC; 84478-TC; 84484-TC; 85025-TC; 85027-TC; 85347; 85378-TC; 85610-TC; 85730-TC; 86706; 86850-TC; 87040-TC; 87081-TC; 87086-TC; 87186-TC; 87340; 90935-TC; 93307-TC; 93926-TC; 94002-TC; 94003-TC; 94640-TC; 94660; 94760-TC; 94762-TC; 94799-TC; 97110-TC; 97530-TC; A4216; A4217; A4223; A9540; A9567; C1725; C1726; C1751; C1769; C1876; C1887; C1894; G0269; G0378; J0282; J0456; J0692; J0696; J1250; J1644; J1650; J1720; J1940; J2060; J2185; J2405; J2543; J2765; J2997; J3370; J3475; J3480; J3490; J7030; J7040; J7050; J7060; P9016; P9047; Q9967